=== PATIENT | female | born 1955 | race Caucasian/White ===

== ENCOUNTER 2016-10-08 15:28 | Inpatient (IN) ==
[2016-10-08] MEDS ORDERED: Mag Hydrox/Al Hydrox/Simeth 30 ML UDC PO PRN (22:35)
[2016-10-08] MEDS ORDERED: Naloxone 0.4 MG/ML INJ IVP PRN (22:35)
[2016-10-08] MEDS ORDERED: Ondansetron 4 MG/2 ML VIAL IVP PRN (22:35)
[2016-10-08] MEDS ORDERED: Acetaminophen 325 MG TABLET PO PRN (22:35)
[2016-10-08] MEDS ORDERED: Potassium Chloride 40 MEQ, Lidocaine 1% 2 ML in D5% in Water 500 ML IVPB ONE (22:57)
[2016-10-08] MEDS ORDERED: Metoclopramide 10 MG/2 ML VIAL IVP ONE (22:58)
[2016-10-08] MEDS ORDERED: Pantoprazole 80 MG in 0.9 % Sodium Chloride 50 ML IVPB ONE (22:58)
[2016-10-08 23:33] LABS: Magnesium 1.7 mg/dL (1.6-2.6); Phosphorous 2.2 mg/dL (2.3-4.7)
[2016-10-08] MEDS: *HR* OxyCODONE Immed Rel 5 MG TABLET PO PRN (23:37)
--- NOTE | 2016-10-08 23:38 | Internal Med History&Physical ---
Date of Encounter: 10/08/16 Time of Encounter: 22:30 Assessment and Plan (1) Acute abdominal pain syndrome Status: Acute . (2) SIRS due to infectious process with acute organ dysfunction Status: Acute . (3) Intractable nausea and vomiting Status: Acute . Qualifiers: Vomiting type: cyclical vomiting Qualified Code(s): G43.A1 - Cyclical vomiting, intractable (4) Syncope and collapse Status: Acute . (5) Syncope due to orthostatic hypotension Status: Acute . (6) Acute kidney injury superimposed on CKD Status: Acute . (7) Severe dehydration Status: Acute . (8) Delirium due to conditions classified elsewhere Status: Acute . (9) Toxic metabolic encephalopathy Status: Acute . (10) Duodenitis Status: Acute . (11) Internal hernia Status: Acute . (12) Protein-calorie malnutrition, severe Status: Chronic . (13) Colitis, enteritis, and gastroenteritis of presumed infectious origin Status: Acute . (14) Obesity (BMI 30-39.9) Status: Chronic . (15) Chronic sinusitis, unspecified Status: Chronic . Qualifiers: Sinusitis location: pansinusitis Qualified Code(s): J32.4 - Chronic pansinusitis (16) HTN (hypertension) Status: Chronic . Qualifiers: Hypertension type: essential hypertension Qualified Code(s): I10 - Essential (primary) hypertension (17) HLD (hyperlipidemia) Status: Chronic . Qualifiers: Hyperlipidemia type: mixed hyperlipidemia Qualified Code(s): E78.2 - Mixed hyperlipidemia (18) Dehydration with hyponatremia Status: Acute . (19) Nicotine dependence with nicotine-induced disorder Status: Chronic . Qualifiers: Nicotine product type: cigarettes Qualified Code(s): F17.219 - Nicotine dependence, cigarettes, with unspecified nicotine-induced disorders (20) Hypovolemic shock Status: Acute . (21) Hypokalemia Status: Inactive . Internal Medicine - H&P: HPI Chief complaint: Abdominal pain, nausea/vomiting. Admitted From: Hospital to Hospital Transfer (Transferred from [facility]) Plans for Post Hospital Care: Home History of present illness: Ms. Wilkinson is a 61 year old female with history noteworthy for hypertension, dyslipidemia, hypothyroidism, osteoarthritis, osteopenia, H/o ?Rheumatoid arthrititis, nonobstCAD, diastolic CHF, COPD, depression and anxiety, GERD, morbid obesity, former heavy smoker. The patient was visited and interviewed and examined. Patient is admitted to [facility] as a hospital transfer from [facility] reports of intractable abdominal pain nausea vomiting. Patient first presented to the emergency room stating that she had onset of vomiting earlier in the day. He reported vomiting at least 10 times. Did not suffer any hematemesis melena or bright red blood per rectum nor epistaxis hemoptysis or hematemesis. He reported bilateral lower quadrant abdominal pain that had been present for approximately 4-5 days prior to onset of her nausea and vomiting. Her daughter had found her to be confused during the day and brought her to the emergency room for evaluation. CT of the abdomen and pelvis suggested that thickened appearance of the colon representing colitis. He was admitted to the medical surgical floor at [facility] however patient and family requested transfer to [facility] for ongoing medical care and potential for surgical intervention if needed. Patient's history is noteworthy for a colonoscopy April 2016 harvesting multiple noncancerous polyps. She had also undergone a cholecystectomy in February 2016. Her history also is noteworthy for at least 2 years that she carried a diagnosis of gastroparesis due to chronic nauseation abdominal bloating and discomfort. Findings in the ED: Temperature 97.6 pulse 70 respirations 20-25 blood pressure 88/45 O2 saturation 95% 2 L per nasal cannula. WBC 19.4 hemoglobin 16.7. MCH 82.4. RDW 15. Platelets 281,000. Differential showed an increase in neutrophils. PT 13.1 INR 1.0 PTT 31.6. Metabolic panel noted sodium 133 potassium 2.8 chloride 88. BUN 20 creatinine 1.5. GFR 35. Glucose 188 osmolality 295. Hepatic function normal. Albumin 3.2 total 6.9. Lipase 61. Troponin 0.01. CT head scan showed no acute intracranial abnormality. Mild chronic microvascular ischemic changes. Mucosal thickening right sphenoid sinus and right maxillary sinus EKG normal sinus rhythm nonspecific ST-T wave elevation no acute ischemic changes. CT abdomen and pelvis without contrast demonstrated abrupt caliber change in the distal duodenum of uncertain etiology. Possibly due to adhesions or internal hernia. Recommended. Mild thickened appearance to: Possibly mild colitis. Right lower lobe pulmonary Jaspreet nausea will. Nonspecific thickening of the wall of the urinary bladder. No pathologically enlarged lymph nodes. No fluid or air in the diaphragm. Preliminary impression suggests acute abdominal pain with nausea and vomiting secondary to descending enterocolitis. Systemic inflammatory response syndrome with hypotension consistent with severe sepsis present at admission acute kidney injury stage III on chronic kidney disease present suggestive of modest dehydration. Modest metabolic and electrolyte derangements are associated. The patient presents further risk for acute clinical decline and morbidity given her presenting chief complaint findings and comorbidities. Workup and treatment will progress comprehensively. Cumulative laboratory and radiographic data base was reviewed, considered and discussed. Pertinent ancillary medical records including ECW and PCI documentation was reviewed and considered. Given the patient's presenting concerns, past medical history, clinical findings and symptoms, she is admitted at this time will undergo further evaluation and disposition. Orders were written as per the computerized physician order entry technician system.......................................................................... .................... Consultative opinions will be sought as clinical circumstances justify. Pain management needs will be addressed. Laboratory and radiographic data base will be updated as appropriate. Studies include:cultures blood, amylase, lipase, PT/INR,APTT, cardiac injury panel, BNP , metabolic and hematologic panel, magnesium, phosphorus, ionized calcium, thyroid panel, lipid profile, A1c, C-peptide, CRP, sedimentation rate, respiratory virus panel, blood gas, UA, UDS, lactic acid, serologies, etc. Precautions: Aspiration, fall, delirium protocol/surveillance initiated. Telemetry with continuous hemodynamic monitoring and pulse oximetry initiated. Empiric antibiotic coverage: Intravenous Cipro and Flagyl pending culture data. Special studies: CT abd/pelvis, CT head, chest x-ray, telemetry, EKG. Bowel rest. Clear liquids diet. Advance diet as clinical symptoms permit. Anti-emetics, probiotic, prokinetic therapy initiated. Correction of acid/ base and metabolic/fluid deficits. Pulmonary toilet: Incentive spirometry. Aerosol bronchodilator, mucolytic, antitussivePRN. Supplemental oxygen. Corticosteroid therapyPRN. CPAP/BiPAP supplemental oxygen deliveryPRN. Aerosol Mucomyst therapyPRN. Fluid and electrolyte repletion efforts will proceed. Careful attention to fluid balance and renal recovery will be emphasized. Avoidance of nephrotoxic exposure and adverse drug drug interaction in the setting of impaired renal function will be monitored closely. Acute coronary syndrome protocol/surveillance initiated. DVT and PUD prophylaxis initiated: PPI therapy, intermittent pneumatic cuffs. Subcutaneous heparin. Early ambulation will be encouraged. Immunization updates recommended. Influenza and pneumococcal vaccinations as part of ongoing preventative healthcare recommendations strongly recommended. Smoking cessation counseling briefly addressed. Patient is a former smoker. Advanced care directive discussion briefly addressed. Patient does not declare any healthcare restrictions at this time. Cardiovascular risk appraisal and cardiovascular risk reduction efforts will be emphasized. Physical and occupational therapy may be consulted to evaluate/assess patient's functional capacity and progress mobility as her circumstances justify. Nutrition/dietary education counseling may be considered as circumstances justify. Outpatient medication schedules will be reviewed, confirmed and facilitated as appropriate. Reconciliation of home treatments including adjustments, substitutions and reintroduction into the treatment regimen will address necessary maintenance therapies for chronic pre-existing medical conditions. Plan of care has been reviewed and discussed in detail with the patient. Questions addressed. Hospital course dictated by clinical findings, treatment response and potential consultative interventions. Patient is at risk for further acute clinical decline due to his presenting chief complaints, findings and comorbid conditions. Condition is serious. Prognosis is cautiously optimistic. CODE STATUS is full. Past Med Surg Social Fam HX - Past Medical History Source: old records reviewed Medical history: arthritis, CHF, coronary artery disease, GERD, hyperlipidemia, hypertension, osteoporosis, thyroid disease, other (Dupuytren's contractures. Left plantar fibroma. Right insertional Achilles tendinopathy. Peripheral neuropathy.) Psychiatric history: anxiety, depression - Past Surgical History Surgical History: cholecystectomy, hysterectomy, orthopedic, other, sinus surgery, [place]/BSO, thyroidectomy, other (bladder surgery. Anoscopy. Biopsy of throat (X) benign. Myringotomy tubes right ear.) - Social History Smoking Status: Current every day smoker Packs per day: 1ppd (x45yrs) Smokeless Tobacco Status: No Alcohol use: none Drug use: none Occupational status: retired, disabled Current living situation: With Family Activity Level: Mostly sedentary Recent Out of Country Travel Within the Last 8 Weeks: No Exposure or Possible Exposure to Illness During Travel: No - Family History Mother Adopted: [place]: [place] Family Member Ethnicity: Non- Living Status: Age at : 78 Cause of : OVARIAN CANCER Hx Family Cancer: Yes Internal Medicine - H&P: Meds Albuterol Sulfate [Albuterol Inhaler] 2 puff IH Q4HR PRN 02/13/16 [History] Atorvastatin [Lipitor] 40 mg PO HS 02/13/16 [History] Cholecalciferol (D-3) [Vitamin D] 1,000 unit PO DAILY 02/13/16 [History] Gabapentin [Neurontin] 300 mg PO BID 02/13/16 [History] HYDROcodone/Acet 5/325 mg [[place] 5-325 mg] 1 tab PO TID PRN 02/13/16 [History] Levothyroxine [Synthroid] 112 mcg PO DAILY 02/13/16 [History] Omeprazole [PriLOSEC] 20 mg PO DAILY 02/13/16 [History] Paroxetine [Paxil] 40 mg PO DAILY 02/13/16 [History] Linaclotide [Linzess] 145 mcg PO DAILY PRN 04/03/16 [History] Promethazine [Phenergan] 25 mg PO Q12H PRN 04/03/16 [History] Amitriptyline HCl [Amitriptyline HCl] 100 mg PO HS 10/08/16 [History] Aspirin 81 mg PO DAILY 10/08/16 [History] BuPROPion SR (12 HR) [Wellbutrin SR] 150 mg PO BID 10/08/16 [History] Dicyclomine [Bentyl] 10 mg PO QID 10/08/16 [History] Docusate [Colace] 100 mg PO BID PRN 10/08/16 [History] Furosemide [Lasix] 40 mg PO DAILY 10/08/16 [History] Lisinopril [Lisinopril] 30 mg PO BID 10/08/16 [History] Metoclopramide HCl 5 mg PO QID 10/08/16 [History] Ciprofloxacin HCl [Cipro] 500 mg PO BID #14 tablet 10/12/16 [Rx] MetroNIDAZOLE [Flagyl] 500 mg PO TID #21 tablet 10/12/16 [Rx] Nutritional Supplement [Ensure] 113 gm PO TID #90 container 10/12/16 [Rx] Allergies No Known Allergies Allergy (Unverified 04/05/15 13:52) All Systems PM: A 10-system review of systems was performed and is negative for pertinent findings except as documented above in the HPI. - Constitutional Constitutional: as per HPI, malaise, no chills, no fever(s), no night sweats - EENT Eyes: as per HPI, no change in vision, no discharge, no pain, no photophobia Nose, mouth and throat: as per HPI, no dysphagia, no nasal discharge, no neck pain, no sore throat - Cardiovascular Cardiovascular ROS IM: as per HPI, no chest pain, no diaphoresis, no dyspnea, no lightheadedness, no palpitations, no syncope - Respiratory Respiratory: as per HPI, no cough, no dyspnea, no wheezing, no excessive phlegm production - Gastrointestinal Gastrointestinal: as per HPI, abdominal pain, bloating, change in bowel habits, cramping, diarrhea, nausea, vomiting, no hematemesis, no hematochezia, no melena - Genitourinary Genitourinary: as per HPI, no change in urinary stream, no dysuria, no flank pain, no hematuria Menstruation: as per HPI, post hysterectomy, post menopausal - Musculoskeletal Musculoskeletal ROS IM: as per HPI, no numbness, no tingling - Integumentary Integumentary IM: as per HPI, no rash, no unusual bruising - Neurological Neurological ROS: as per HPI, confusion, weakness, other, no convulsions, no focal weakness, no numbness, no tingling, no tremor(s) - Psychiatric Psychiatric: as per HPI - Endocrine Endocrine IM: as per HPI - Hematologic/Lymphatic Hematologic/Lymphatic: as per HPI, no easy bruising - Allergic/Immunologic Allergic/Immunologic: as per HPI - Constitutional Vitals: Temp Pulse Resp BP Pulse Ox 98.5 F 74 16 103/68 96 10/08/16 22:41 10/08/16 22:41 10/08/16 22:41 10/08/16 22:41 10/08/16 22:41 General appearance: Present: mild distress, A&O X 3, morbidly obese, answers questions appropriately - Head Head exam: Present: atraumatic, normocephalic - Eye Eye exam: Present: EOMI, PERRL, conjuntiva pink, sclera anicteric Pupils: Present: normal accommodation, PERRL - ENT ENT exam: Present: mucous membranes moist, normal external ear exam, normal oropharynx - Neck Neck exam general surgery: Present: full ROM, supple, trachea midline. Absent: lymphadenopathy, tenderness, nuchal rigidity - Respiratory Respiratory exam: Present: decreased breath sounds, CTAB. Absent: accessory muscle use, rales, rhonchi, wheezes - Cardiovascular Cardiovascular exam: Present: distant heart sounds, RRR, +S1, +S2. Absent: diastolic murmur, gallop, rubs, systolic murmur - GI/Abdominal GI/Abdominal exam: Present: distended, hyperactive bowel sounds, soft, tenderness, no peritoneal signs - Extremities Exam Extremities exam: Present: full ROM, warm, radial pulses palpable and symetrical. Absent: calf tenderness, cyanotic, pedal edema - Neurological Exam Neurological exam: Present: alert, altered, CN II-XII intact, oriented X3, no focal deficits. Absent: pronater drift, facial droop, speech deficit - Psychiatric Psychiatric exam: Present: normal affect, normal mood - Skin Skin exam: Present: dry, intact, warm. Absent: petechiae, rash, urticaria, vesicles Internal Med - H&P Results - Labs CBC & Chem 7: 10/12/16 04:07 10/12/16 04:07 - Impressions Vital Signs Temp Pulse Resp BP Pulse Ox 10/08/16 22:41 98.5 F 74 16 103/68 96 Intake and Output 10/08/16 10/08/16 10/08/16 07:59 15:59 23:59 Other: Weight 95.254 kg Patient Weight 10/08/16 23:59 Weight 95.254 kg Abnormal lab results Phosphorus 2.2 mg/dL (2.3-4.7) L 10/08/16 23:12 Allergies Allergy/AdvReac Type Severity Reaction Status Date / Time No Known Allergies Allergy Unverified 04/05/15 13:52 Laboratory Results Phosphorus 2.2 mg/dL (2.3-4.7) L 10/08/16 23:12 Magnesium 1.7 mg/dL (1.6-2.6) 10/08/16 23:12 Abnormal lab results WBC 21.3 K/mcL (4.3-11.1) H 10/09/16 04:36 MCH 27.9 pg (28.0-33.3) L 10/09/16 04:36 RDW 15.2 % (11.5-14.5) H 10/09/16 04:36 Sodium 135 mEq/L (136-145) L 10/09/16 04:36 Glucose 144 mg/dL (70-99) H 10/09/16 04:36 Calcium 7.6 mg/dL (8.6-10.8) L 10/09/16 04:36 Phosphorus 2.2 mg/dL (2.3-4.7) L 10/08/16 23:12 C-Reactive Protein 94 mg/L (Less than 5) H 10/09/16 04:36 Albumin 2.9 g/dL (3.5-5.0) L 10/09/16 04:36 Globulin 3.6 g/dL (2.4-3.5) H 10/09/16 04:36 Albumin/Globulin Ratio 0.8 (1.1-2.2) L 10/09/16 04:36 HDL Cholesterol 34 mg/dL (40-59) L 10/09/16 04:36 Laboratory Results WBC 21.3 K/mcL (4.3-11.1) H 10/09/16 04:36 RBC 4.59 M/mcL (3.82-4.97) 10/09/16 04:36 Hgb 12.8 g/dL (11.5-15.4) D 10/09/16 04:36 Hct 39.4 % (35.3-44.9) 10/09/16 04:36 MCV 85.8 fL (83.0-100.0) 10/09/16 04:36 MCH 27.9 pg (28.0-33.3) L 10/09/16 04:36 MCHC 32.5 g/dL (31.6-35.5) 10/09/16 04:36 RDW 15.2 % (11.5-14.5) H 10/09/16 04:36 Plt Count 199 K/mcL (140-400) 10/09/16 04:36 MPV 11.6 fL (9.4-12.4) 10/09/16 04:36 Sodium 135 mEq/L (136-145) L 10/09/16 04:36 Potassium 3.9 mEq/L (3.5-4.5) D 10/09/16 04:36 Chloride 100 mEq/L (98-109) 10/09/16 04:36 Carbon Dioxide 28 mEq/L (19-29) 10/09/16 04:36 BUN 8 mg/dL (7-20) D 10/09/16 04:36 Creatinine 0.78 mg/dL (0.57-1.11) 10/09/16 04:36 Est GFR ( Amer) > 60 (> 60) 10/09/16 04:36 Est GFR (Non-Af Amer) > 60 (> 60) 10/09/16 04:36 BUN/Creatinine Ratio 10 (6-26) 10/09/16 04:36 Glucose 144 mg/dL (70-99) H 10/09/16 04:36 Calculated Osmolality 281 (280-300) 10/09/16 04:36 Calcium 7.6 mg/dL (8.6-10.8) L 10/09/16 04:36 Phosphorus 2.2 mg/dL (2.3-4.7) L 10/08/16 23:12 Magnesium 1.7 mg/dL (1.6-2.6) 10/08/16 23:12 Total Bilirubin 0.7 mg/dL (0.2-1.2) 10/09/16 04:36 AST 14 Units/L (5-34) 10/09/16 04:36 ALT 9 Units/L (0-55) 10/09/16 04:36 Alkaline Phosphatase 86 Units/L (38-126) 10/09/16 04:36 Troponin I 0.00 ng/mL (0-0.03) 10/09/16 04:36 C-Reactive Protein 94 mg/L (Less than 5) H 10/09/16 04:36 Serum Total Protein 6.5 g/dL (6.0-8.3) 10/09/16 04:36 Albumin 2.9 g/dL (3.5-5.0) L 10/09/16 04:36 Globulin 3.6 g/dL (2.4-3.5) H 10/09/16 04:36 Albumin/Globulin Ratio 0.8 (1.1-2.2) L 10/09/16 04:36 Triglycerides 67 mg/dL (< 150) 10/09/16 04:36 Cholesterol 113 mg/dL (< 200) 10/09/16 04:36 LDL Cholesterol, Calc 66 mg/dL (0-99) 02/07/17 04:36 VLDL Cholesterol, Calc 13 mg/dL (< 31) 10/09/16 04:36 HDL Cholesterol 34 mg/dL (40-59) L 10/09/16 04:36 Cholesterol/HDL Ratio 3.3 (0-4.9) 10/09/16 04:36 Abdomen/Pelvis CT 10/10/16 15:56 IMPRESSION: 1. Findings compatible with acute descending colitis. No diverticula seen. Trace volume of reactive fluid in the left pericolic gutter. 2. Status post cholecystectomy and hysterectomy. D/ / Nehemiah Ho MD / Nehemiah Ho MD Interpreting Provider: Nehemiah Ho MD
[2016-10-09] MEDS: Ringers Solution, Lactated 1,000 ML IVC SCH ×3 (04:24→18:44)
[2016-10-09] MEDS: Pantoprazole 40 MG in 0.9 % Sodium Chloride Mini Bag 100 ML IVC SCH ×4 (04:27→15:52)
[2016-10-09 04:52] LABS: Hematocrit 39.4 % (35.3-44.9); Hemoglobin 12.8 g/dL (11.5-15.4); Mean Corpuscular HGB Conc 32.5 g/dL (31.6-35.5); Mean Corpuscular Hemoglobin 27.9 pg (28.0-33.3); Mean Corpuscular Volume 85.8 fL (83.0-100.0); Mean Platelet Volume 11.6 fL (9.4-12.4); Platelet Count 199 K/mcL (140-400); Red Blood Count 4.59 M/mcL (3.82-4.97); Red Cell Distribution Width 15.2 % (11.5-14.5)
[2016-10-09 05:12] LABS: Alanine Aminotransferase 9 Units/L (0-55); Albumin 2.9 g/dL (3.5-5.0); Albumin/Globulin Ratio 0.8 (1.1-2.2); Alkaline Phosphatase 86 Units/L (38-126); Aspartate Amino Transferase 14 Units/L (5-34); BUN/Creatinine Ratio 10 (6-26); Bilirubin,Total 0.7 mg/dL (0.2-1.2); Blood Urea Nitrogen 8 mg/dL (7-20); C-Reactive Protein 94 mg/L (Less than 5); Calcium 7.6 mg/dL (8.6-10.8); Carbon Dioxide 28 mEq/L (19-29); Chloride 100 mEq/L (98-109); Chol/HDL Ratio 3.3 (0-4.9); Cholesterol 113 mg/dL (< 200); Globulin 3.6 g/dL (2.4-3.5); Glucose 144 mg/dL (70-99); HDL Cholesterol 34 mg/dL (40-59); LDL Cholesterol,Calculated 66 mg/dL (0-99); Osmolality,Calculated 281 (280-300); Potassium 3.9 mEq/L (3.5-4.5); Sodium 135 mEq/L (136-145); Total Protein 6.5 g/dL (6.0-8.3); Triglycerides 67 mg/dL (< 150); eGFR For African Americans > 60 (> 60); eGFR For Non-African Americans > 60 (> 60)
[2016-10-09 05:49] LABS: Bilirubin,Urine Negative (Negative); Blood,Urine Trace (Negative); Clarity,Urine Clear (Clear); Color,Urine Yellow (Yellow); Glucose,Urine (UA) Normal (Normal); Ketones,Urine Negative (Negative); Leukocyte Esterase,Urine Negative (Negative); Nitrite,Urine Negative (Negative); PH,Urine 5.5 pH Units (5.0-8.0); Protein,Urine Negative (Neg-Trace); Specific Gravity,Urine 1.011 (1.010-1.025); Urobilinogen,Urine Normal (Normal)
[2016-10-09] MEDS ORDERED: Sodium Phosphate 30 MMOL in D5% in Water 100 ML IVPB ONE (05:49)
[2016-10-09 05:51] LABS: Bacteria,Urine None Seen per hpf (None-Few); Hyaline Casts,Urine None Seen per lpf (None-Few); RBC,Urine 0-3 per hpf (0-3); Squamous Epithelial Cell,Urine Moderate per lpf (None-Few); WBC,Urine 0-3 per hpf (0-3)
[2016-10-09] MEDS: *HR* OxyCODONE Immed Rel 5 MG TABLET PO PRN ×2 (09:42→15:50)
[2016-10-09] MEDS: Aspirin 81 MG TAB.CHEW PO SCH (11:31)
[2016-10-09] MEDS: Gabapentin 300 MG CAPSULE PO SCH ×2 (11:32→21:04)
[2016-10-09] MEDS: BuPROPion SR (12 HR) 150 MG TABLET PO SCH ×2 (11:32→21:04)
[2016-10-09] MEDS: *HR* HYDROmorphone (PF) 1 MG/ML SYRINGE IVP PRN ×2 (11:44→21:12)
--- NOTE | 2016-10-09 14:26 | General Surgery Consult Note ---
<KonstantinFrank M - Last Filed: 10/09/16 17:08> Date of Encounter: 10/09/16 Medications and Allergies Albuterol Sulfate [Albuterol Inhaler] 2 puff IH Q4HR PRN 02/13/16 [History] Atorvastatin [Lipitor] 40 mg PO HS 02/13/16 [History] Cholecalciferol (D-3) [Vitamin D] 1,000 unit PO DAILY 02/13/16 [History] Gabapentin [Neurontin] 300 mg PO BID 02/13/16 [History] HYDROcodone/Acet 5/325 mg [Beltrami 5-325 mg] 1 tab PO TID PRN 02/13/16 [History] Levothyroxine [Synthroid] 112 mcg PO DAILY 02/13/16 [History] Omeprazole [PriLOSEC] 20 mg PO DAILY 02/13/16 [History] Paroxetine [Paxil] 40 mg PO DAILY 02/13/16 [History] Linaclotide [Linzess] 145 mcg PO DAILY PRN 04/03/16 [History] Promethazine [Phenergan] 25 mg PO Q12H PRN 04/03/16 [History] Amitriptyline HCl [Amitriptyline HCl] 100 mg PO HS 10/08/16 [History] Aspirin 81 mg PO DAILY 10/08/16 [History] BuPROPion SR (12 HR) [Wellbutrin SR] 150 mg PO BID 10/08/16 [History] Dicyclomine [Bentyl] 10 mg PO QID 10/08/16 [History] Docusate [Colace] 100 mg PO BID PRN 10/08/16 [History] Furosemide [Lasix] 40 mg PO DAILY 10/08/16 [History] Lisinopril [Lisinopril] 30 mg PO BID 10/08/16 [History] Metoclopramide HCl 5 mg PO QID 10/08/16 [History] Allergies No Known Allergies Allergy (Unverified 04/05/15 13:52) Review of Systems All systems PM: A 10-system review of systems was performed and is negative for pertinent findings except as documented above in the HPI. General Surgery Exam Initial Vital Signs Temp Pulse Resp BP Pulse Ox 98.5 F 74 16 103/68 96 10/08/16 22:41 10/08/16 22:41 10/08/16 22:41 10/08/16 22:41 10/08/16 22:41 Exam Initial Vital Signs Temp Pulse Resp BP Pulse Ox 98.5 F 74 16 103/68 96 10/08/16 22:41 10/08/16 22:41 10/08/16 22:41 10/08/16 22:41 10/08/16 22:41 Results - Labs 10/09/16 04:36 10/09/16 04:36 Abnormal lab results WBC 21.3 K/mcL (4.3-11.1) H 10/09/16 04:36 MCH 27.9 pg (28.0-33.3) L 10/09/16 04:36 RDW 15.2 % (11.5-14.5) H 10/09/16 04:36 Sodium 135 mEq/L (136-145) L 10/09/16 04:36 Glucose 144 mg/dL (70-99) H 10/09/16 04:36 Calcium 7.6 mg/dL (8.6-10.8) L 10/09/16 04:36 Phosphorus 2.2 mg/dL (2.3-4.7) L 10/08/16 23:12 C-Reactive Protein 94 mg/L (Less than 5) H 10/09/16 04:36 Albumin 2.9 g/dL (3.5-5.0) L 10/09/16 04:36 Globulin 3.6 g/dL (2.4-3.5) H 10/09/16 04:36 Albumin/Globulin Ratio 0.8 (1.1-2.2) L 10/09/16 04:36 HDL Cholesterol 34 mg/dL (40-59) L 10/09/16 04:36 Urine Blood Trace (Negative) H 10/09/16 04:50 Ur Squamous Epith Cells Moderate per lpf (None-Few) H 10/09/16 04:50 Diabetes panel 10/09/16 Range/Units 04:36 Sodium 135 L (136-145) mEq/L Potassium 3.9 D (3.5-4.5) mEq/L Chloride 100 (98-109) mEq/L Carbon Dioxide 28 (19-29) mEq/L BUN 8 D (7-20) mg/dL Creatinine 0.78 (0.57-1.11) mg/dL Glucose 144 H (70-99) mg/dL Calcium 7.6 L (8.6-10.8) mg/dL AST 14 (5-34) Units/L ALT 9 (0-55) Units/L Alkaline Phosphatase 86 (38-126) Units/L Albumin 2.9 L (3.5-5.0) g/dL Triglycerides 67 (< 150) mg/dL HDL Cholesterol 34 L (40-59) mg/dL Calcium panel 10/08/16 10/09/16 Range/Units 23:12 04:36 Calcium 7.6 L (8.6-10.8) mg/dL Phosphorus 2.2 L (2.3-4.7) mg/dL Albumin 2.9 L (3.5-5.0) g/dL Pituitary panel 10/09/16 Range/Units 04:36 Sodium 135 L (136-145) mEq/L Potassium 3.9 D (3.5-4.5) mEq/L Chloride 100 (98-109) mEq/L Carbon Dioxide 28 (19-29) mEq/L BUN 8 D (7-20) mg/dL Creatinine 0.78 (0.57-1.11) mg/dL Glucose 144 H (70-99) mg/dL Calcium 7.6 L (8.6-10.8) mg/dL Adrenal panel 10/09/16 Range/Units 04:36 Sodium 135 L (136-145) mEq/L Potassium 3.9 D (3.5-4.5) mEq/L Chloride 100 (98-109) mEq/L Carbon Dioxide 28 (19-29) mEq/L BUN 8 D (7-20) mg/dL Creatinine 0.78 (0.57-1.11) mg/dL Glucose 144 H (70-99) mg/dL Calcium 7.6 L (8.6-10.8) mg/dL Total Bilirubin 0.7 (0.2-1.2) mg/dL AST 14 (5-34) Units/L ALT 9 (0-55) Units/L Alkaline Phosphatase 86 (38-126) Units/L Albumin 2.9 L (3.5-5.0) g/dL All other labs normal. Consult Discharge Plan - Plan Referrals: Vibha Miller, PAYMENT POSTER [Primary Care Provider] - - Attending Attestation I examined this patient and my medical decision-making was reviewed with the PORTRAIT STUDIO PHOTOGRAPHER/PA/Advanced Practice Nurse/Resident Physician. I agree with the documented findings, disposition and treatment plan as described except to the extent set forth below. I reviewed the physical exam and evaluation. Agree with serial abdominal exam and following the patient's white count. Continue with IV antibiotics and will allow clear liquids. Will follow with you. <Nemesio Braun - Last Filed: 10/09/16 17:20> Date of Encounter: 10/09/16 Time of Encounter: 13:50 Assessment and Plan (1) Colitis Current Visit: Yes Status: Acute Continue antibiotic coverage with cipro and flagyl. IV fluids @ 125cc/hr Currently NPO, will advance to clear liquid diet. Supportive care/ pain control. (2) GI bleed Current Visit: Yes Status: Acute Continued BRBPR today. Hgb on 10/07 at 16.9, today 10/09 Hgb 12.8 Hgb likely will continue to decline with hydration and continued blood per rectum. Will continue to monitor. Qualifiers: GI bleed type/associated pathology: unspecified gastrointestinal hemorrhage type Qualified Code(s): K92.2 - Gastrointestinal hemorrhage, unspecified (3) ARISTIDES (acute kidney injury) Current Visit: Yes Status: Acute Improved Cr 1.52> 0.78 Likely secondary to dehydration, continue IVFs. (4) HTN (hypertension) Current Visit: Yes Status: Chronic Currently normotensive. Management per medicine service. Qualifiers: Hypertension type: essential hypertension Qualified Code(s): I10 - Essential (primary) hypertension (5) HLD (hyperlipidemia) Current Visit: Yes Status: Chronic Qualifiers: Hyperlipidemia type: mixed hyperlipidemia Qualified Code(s): E78.2 - Mixed hyperlipidemia (6) Obesity (BMI 30-39.9) Current Visit: Yes Status: Chronic History of Present Illness Consult date: 10/09/16 Reason for consult: abdominal pain Requesting physician: Marycarmen Merino History of present illness: Ms. Wilkinson is a 61 year old female, transferred from [place], for BRBPR and abdominal pain. Patient states he initially felt weak with frequent non-bloody emesis beginning on 10/04/16, this continued to worsen and patient is unsure of likely syncopal episode while showering on 10/06/16. Patient's daughter is present and states patient called her on Saturday10/07/16, which patient doesn't recall, when daughter arrived with continued vomiting. Brought to [place] ED found to have temp of 96.3F, pulse 78, RR 26, BP 61/5, and O2 sat 92% on 2 lpm. Daughter notes that patient's abdominal pain started Saturday night, patient states the pain is constant/crampy and localized to bilateral lower quadrants, worse in the LLQ. She notes 4 episodes of bright red blood per rectum with clots yesterday and 1 episode today. Notes yellow, bilious emesis. Patient denies any diarrhea, dysuria, fever, or chills. Last colonscopy by Dr. Dorsey on 04/03/16, impression: Twelve 2 to 4 mm polyps in the rectum, descending and ascending colon, removed with cold biopsy forceps. Six to 8mm polyps in the sigmoid, descending, splenic flexure, transverse colon , and at the ileocecal valve; removed with hot snare. Diagnosed with polyposis, referral to genetics with f/u colonscopy in 1 year. PMHx: gastroparesis, arthritis, CHF, CAD, GERD, thyroid disease, anxiety, depression, dypuytren's contractures. Past Med Surg Social Fam HX - Past Medical History Source: patient, obtained from family Medical history: arthritis, CHF, coronary artery disease, GERD, hyperlipidemia, hypertension, osteoporosis, thyroid disease, other (Dupuytren's contractures. Left plantar fibroma. Right insertional Achilles tendinopathy. Peripheral neuropathy.) Psychiatric history: anxiety, depression - Past Surgical History Surgical History: cholecystectomy, hysterectomy, orthopedic, other, sinus surgery, [facility]/BSO, thyroidectomy, other (bladder surgery. Anoscopy. Biopsy of throat (X) benign. Myringotomy tubes right ear.) - Social History Smoking Status: Current every day smoker Packs per day: 1ppd (x45yrs) Smokeless Tobacco Status: No Alcohol use: none Drug use: none - Family History Mother Adopted: [place]: [place] Family Member Ethnicity: Non- Living Status: Age at : 78 Cause of : OVARIAN CANCER Hx Family Cancer: Yes Review of Systems All systems PM: A 10-system review of systems was performed and is negative for pertinent findings except as documented above in the HPI. - Constitutional weight loss (10 lbs in 11 days), no chills, no fever(s) - EENT Nose, mouth and throat: disequilibrium, dizziness, no dysphagia - Cardiovascular no chest pain, no dyspnea - Respiratory no dyspnea - Gastrointestinal abdominal pain, cramping, hematochezia, melena, nausea, vomiting, no hematemesis - Neurological confusion, disequilibrium, dizziness, syncope - Psychiatric anxiety, confusion - Endocrine fatigue, no palpitations General Surgery Exam Initial Vital Signs Temp Pulse Resp BP Pulse Ox 98.5 F 74 16 103/68 96 10/08/16 22:41 10/08/16 22:41 10/08/16 22:41 10/08/16 22:41 10/08/16 22:41 - General physical appearance well developed, well nourished, no distress - Eyes normal ocular movement - ENT atraumatic, normocephalic - Neck trachea midline - Respiratory normal respiratory effort, clear to auscultation - Cardiovascular Cardiovascular exam: Present: RRR - Abdomen Abdomen general surgery: Present: bowel sounds present, soft, tender (tender in RLQ, LLQ, and LUQ. Worst in LLQ.) Abdominal Tenderness: Present: LLQ - Integumentary Integumentary general surgery: Present: warm and dry - Neurologic Present: CN 2-12 grossly intact - Psychiatric Psychiatric general surgery: Present: A&Ox3, speech is normal, memory intact Exam Initial Vital Signs Temp Pulse Resp BP Pulse Ox 98.5 F 74 16 103/68 96 10/08/16 22:41 10/08/16 22:41 10/08/16 22:41 10/08/16 22:41 10/08/16 22:41 Results - Labs 10/09/16 04:36 10/09/16 04:36 Abnormal lab results WBC 21.3 K/mcL (4.3-11.1) H 10/09/16 04:36 MCH 27.9 pg (28.0-33.3) L 10/09/16 04:36 RDW 15.2 % (11.5-14.5) H 10/09/16 04:36 Sodium 135 mEq/L (136-145) L 10/09/16 04:36 Glucose 144 mg/dL (70-99) H 10/09/16 04:36 Calcium 7.6 mg/dL (8.6-10.8) L 10/09/16 04:36 Phosphorus 2.2 mg/dL (2.3-4.7) L 10/08/16 23:12 C-Reactive Protein 94 mg/L (Less than 5) H 10/09/16 04:36 Albumin 2.9 g/dL (3.5-5.0) L 10/09/16 04:36 Globulin 3.6 g/dL (2.4-3.5) H 10/09/16 04:36 Albumin/Globulin Ratio 0.8 (1.1-2.2) L 10/09/16 04:36 HDL Cholesterol 34 mg/dL (40-59) L 10/09/16 04:36 Urine Blood Trace (Negative) H 10/09/16 04:50 Ur Squamous Epith Cells Moderate per lpf (None-Few) H 10/09/16 04:50 Diabetes panel 10/09/16 Range/Units 04:36 Sodium 135 L (136-145) mEq/L Potassium 3.9 D (3.5-4.5) mEq/L Chloride 100 (98-109) mEq/L Carbon Dioxide 28 (19-29) mEq/L BUN 8 D (7-20) mg/dL Creatinine 0.78 (0.57-1.11) mg/dL Glucose 144 H (70-99) mg/dL Calcium 7.6 L (8.6-10.8) mg/dL AST 14 (5-34) Units/L ALT 9 (0-55) Units/L Alkaline Phosphatase 86 (38-126) Units/L Albumin 2.9 L (3.5-5.0) g/dL Triglycerides 67 (< 150) mg/dL HDL Cholesterol 34 L (40-59) mg/dL Calcium panel 10/08/16 10/09/16 Range/Units 23:12 04:36 Calcium 7.6 L (8.6-10.8) mg/dL Phosphorus 2.2 L (2.3-4.7) mg/dL Albumin 2.9 L (3.5-5.0) g/dL Pituitary panel 10/09/16 Range/Units 04:36 Sodium 135 L (136-145) mEq/L Potassium 3.9 D (3.5-4.5) mEq/L Chloride 100 (98-109) mEq/L Carbon Dioxide 28 (19-29) mEq/L BUN 8 D (7-20) mg/dL Creatinine 0.78 (0.57-1.11) mg/dL Glucose 144 H (70-99) mg/dL Calcium 7.6 L (8.6-10.8) mg/dL Adrenal panel 10/09/16 Range/Units 04:36 Sodium 135 L (136-145) mEq/L Potassium 3.9 D (3.5-4.5) mEq/L Chloride 100 (98-109) mEq/L Carbon Dioxide 28 (19-29) mEq/L BUN 8 D (7-20) mg/dL Creatinine 0.78 (0.57-1.11) mg/dL Glucose 144 H (70-99) mg/dL Calcium 7.6 L (8.6-10.8) mg/dL Total Bilirubin 0.7 (0.2-1.2) mg/dL AST 14 (5-34) Units/L ALT 9 (0-55) Units/L Alkaline Phosphatase 86 (38-126) Units/L Albumin 2.9 L (3.5-5.0) g/dL All other labs normal.
[2016-10-09] MEDS: MetroNIDAZOLE 500 MG/100 ML 500 MG/100 ML BAG IVPB SCH (18:05)
[2016-10-09] MEDS ORDERED: 0.9 % Sodium Chloride 1,000 ML ONE (18:27)
[2016-10-09] MEDS: 0.9 % Sodium Chloride 1,000 ML IVC SCH (18:30)
--- NOTE | 2016-10-09 18:51 | Internal Med Progress Note ---
Date of Encounter: 10/09/16 Time of Encounter: 10:00 - Assessment and plan (1) Colitis Current Visit: Yes Status: Acute Assessment and plan: We will continue nothing by mouth, IV fluid, IV antibiotics. (2) Dehydration with hyponatremia Current Visit: Yes Status: Acute Assessment and plan: Will continue IV fluid, follow up chemistry. (3) GI bleed Current Visit: Yes Status: Acute Assessment and plan: We will closely monitor vitals and H and H change. Surgical consult. Qualifiers: GI bleed type/associated pathology: anorectal hemorrhage Qualified Code(s) : K62.5 - Hemorrhage of anus and rectum (4) Intractable nausea and vomiting Current Visit: Yes Status: Acute Assessment and plan: Patient's abdominal CAT scan shows distal duodenum caliber change, possibly internal hernia or adherence. Called the surgical consult. Keep nothing by mouth and IV fluid. Qualifiers: Vomiting type: cyclical vomiting Qualified Code(s): G43.A1 - Cyclical vomiting, intractable (5) DVT prophylaxis Current Visit: Yes Status: Acute Assessment and plan: EPCD - Time Spent With Patient 25 - 35 minutes - Subjective Interval history: Patient is a 61-year-old female admitted for rectal bleeding, abdominal pain, nausea and vomiting. Her past medical history is significant for CHF, CAD, hypertension. Past surgical history include cholecystectomy, hysterectomy. Patient was seen and examined. She still complaining of abdominal pain, with nausea and vomiting. Patient said to me she had no bowel movement for 2 days and without PASSING gas. Still has rectal bleeding with clotting. Surgical consult was called and saw patient. - Constitutional Vitals: Temp Pulse Resp BP Pulse Ox 98.2 F 109 18 105/67 93 L 10/09/16 16:20 10/09/16 16:20 10/09/16 16:20 10/09/16 16:20 10/09/16 16:20 General appearance: Present: mild distress, A&O X 3, morbidly obese, answers questions appropriately - Head Head exam: Present: atraumatic, normocephalic - Eye Eye exam: Present: PERRL, conjuntiva pink, sclera anicteric Pupils: Present: PERRL - Neck Neck exam general surgery: Present: supple, trachea midline. Absent: lymphadenopathy - Respiratory Respiratory exam: Present: CTAB. Absent: accessory muscle use, rales, rhonchi, wheezes - Cardiovascular Cardiovascular exam: Present: RRR, +S1, +S2. Absent: diastolic murmur, gallop, rubs, systolic murmur - GI/Abdominal GI/Abdominal exam: Present: normal bowel sounds, soft, tenderness, no peritoneal signs. Absent: distended - Extremities Exam Extremities exam: Present: warm, radial pulses palpable and symetrical. Absent : calf tenderness, cyanotic, pedal edema - Neurological Exam Neurological exam: Present: CN II-XII intact, oriented X3, no focal deficits. Absent: pronater drift, facial droop, speech deficit - Skin Skin exam: Present: dry, intact Internal Medicine: Result - Labs CBC & Chem 7: 10/09/16 04:36 10/09/16 04:36 Labs: Short CBC 10/09/16 Range/Units 04:36 WBC 21.3 H (4.3-11.1) K/mcL Hgb 12.8 D (11.5-15.4) g/dL Hct 39.4 (35.3-44.9) % Plt Count 199 (140-400) K/mcL BMP 10/09/16 04:36 Sodium 135 L Potassium 3.9 D Chloride 100 Carbon Dioxide 28 BUN 8 D Creatinine 0.78 Glucose 144 H Calcium 7.6 L Cardiac Enzymes 10/08/16 10/09/16 10/09/16 Range/Units 23:12 04:36 10:30 Troponin I 0.00 0.00 0.00 (0-0.03) ng/mL Liver Function 10/09/16 Range/Units 04:36 Total Bilirubin 0.7 (0.2-1.2) mg/dL AST 14 (5-34) Units/L ALT 9 (0-55) Units/L Alkaline Phosphatase 86 (38-126) Units/L Albumin 2.9 L (3.5-5.0) g/dL Urine 10/09/16 Range/Units 04:50 Urine Color Yellow (Yellow) Urine Clarity Clear (Clear) Urine pH 5.5 (5.0-8.0) pH Units Ur Specific Lyle 1.011 (1.010-1.025) Urine Protein Negative (Neg-Trace) mg/dL Urine Glucose (UA) Normal (Normal) mg/dL Consult Discharge Plan - Plan Referrals: Vibha Miller CNP [Primary Care Provider] -
[2016-10-09] MEDS ORDERED: 0.9 % Sodium Chloride 1,000 ML IVC SCH (19:00)
[2016-10-09] MEDS ORDERED: Polyethylene Glycol 3350 255 GM POWDER PO ONE (20:21)
[2016-10-09] MEDS ORDERED: 0.9 % Sodium Chloride 500 ML IVC ONE (20:24)
[2016-10-09 20:26] LABS: Hematocrit 36.9 % (35.3-44.9)
[2016-10-10] MEDS: MetroNIDAZOLE 500 MG/100 ML 500 MG/100 ML BAG IVPB SCH ×4 (01:20→23:41)
[2016-10-10 04:57] LABS: BUN/Creatinine Ratio 8 (6-26); Calcium 7.4 mg/dL (8.6-10.8); Carbon Dioxide 28 mEq/L (19-29); Chloride 96 mEq/L (98-109); Glucose 112 mg/dL (70-99); Osmolality,Calculated 274 (280-300); Potassium 3.5 mEq/L (3.5-4.5); Sodium 133 mEq/L (136-145); eGFR For African Americans > 60 (> 60); eGFR For Non-African Americans > 60 (> 60)
[2016-10-10 05:01] LABS: Basophils % 0.2 %; Eosinophils # 0.1 K/mcL (0.0-0.6); Eosinophils % 0.5 %; Hematocrit 36.2 % (35.3-44.9); Hemoglobin 11.5 g/dL (11.5-15.4); Immature Granulocytes % 0.7 % (0-4); Lymphocytes # 2.1 K/mcL (0.6-4.6); Mean Corpuscular HGB Conc 31.8 g/dL (31.6-35.5); Mean Corpuscular Hemoglobin 27.4 pg (28.0-33.3); Mean Corpuscular Volume 86.2 fL (83.0-100.0); Mean Platelet Volume 11.4 fL (9.4-12.4); Monocytes # 1.6 K/mcL (0.0-1.3); Monocytes % 8.4 %; Neutrophils # 15.3 K/mcL (1.6-8.9); Platelet Count 192 K/mcL (140-400); Red Cell Distribution Width 15.3 % (11.5-14.5); Segmented Neutrophils % 79.2 %
[2016-10-10 05:03] LABS: Blood Urea Nitrogen 5 mg/dL (7-20)
[2016-10-10] MEDS: *HR* HYDROmorphone (PF) 1 MG/ML SYRINGE IVP PRN ×2 (06:15→23:47)
--- NOTE | 2016-10-10 07:18 | General Surgery Progress Note ---
Date of Encounter: 10/10/16 Time of Encounter: 07:14 - Assessment and Plan (1) Colitis Current Visit: Yes Status: Acute Noted mild decrease in Hgb. Continued abdominal pain. Symptoms most likely secondary to colitis. Discussed with the patient and will tentatively plan for a colonoscopy to verify that the patient's symptoms correlate with colitis. Continue with IV abx. The patient agrees to the above plan. Subjective Patient reports: still having pain (States she feels the same. Positive multiple BMs with blood. No solids) Objective Vital Signs - Last 8 Hours Temp Pulse Resp BP Pulse Ox 10/10/16 04:31 97.4 F L 76 20 102/70 93 L 10/09/16 23:33 97.8 F 85 20 100/64 95 Intake and Output 10/09/16 10/09/16 10/10/16 15:59 23:59 07:59 Intake Total 1210 / 1210 1600 / 1600 100 / 100 Output Total 750 / 750 Balance 460 / 460 1600 / 1600 100 / 100 Intake: IV Fluids 1210 / 1210 1600 / 1600 100 / 100 0.9 % Sodium Chloride 500 500 / 500 ML @ 1875 mls/hr IVC . Q16M ONE Rx#:[id number] Protonix 40 MG In 0.9 % 200 / 200 Sodium Chloride (Mini-Bag +) 100 ML @ 20 mls/hr IVC .Q5H [facility] Rx#: [id number] Lactated Ringers 1,000 ML 900 / 900 800 / 800 @ 125 mls/hr IVC .Q8H [facility] Rx#:[id number] Cipro 400 MG/200 ML 400 200 / 200 mg In 200 ml @ 200 mls/hr IVPB Q12HR [facility] Rx#: [id number] Flagyl 500 MG/100 ML 500 100 / 100 100 / 100 mg In 100 ml @ 100 mls/hr IVPB Q8HR [facility] Rx#: [id number] Sodium Phosphate 30 MMOL 110 / 110 In Dextrose 5% 100 ML @ 16 mls/hr IVPB ONCE ONE Rx#:[id number] Output: Urine 750 / 750 Other: Meal NPO Stool Size Moderate Stool Consistency liquid # Bowel Movements 1 # Bowel Movement Diapers 1 Weight 102.512 kg Patient Weight 10/10/16 23:59 Weight 102.512 kg - General physical appearance other (mild to moderate distress) - Abdomen Abdomen: Present: bowel sounds present, soft, tender (lower abdominal pain to palpation) - Labs 10/10/16 04:15 10/10/16 04:15 Diabetes panel 10/10/16 Range/Units 04:15 Sodium 133 L (136-145) mEq/L Potassium 3.5 (3.5-4.5) mEq/L Chloride 96 L (98-109) mEq/L Carbon Dioxide 28 (19-29) mEq/L BUN 5 L (7-20) mg/dL Creatinine 0.66 (0.57-1.11) mg/dL Glucose 112 H (70-99) mg/dL Calcium 7.4 L (8.6-10.8) mg/dL Calcium panel 10/10/16 Range/Units 04:15 Calcium 7.4 L (8.6-10.8) mg/dL Pituitary panel 10/10/16 Range/Units 04:15 Sodium 133 L (136-145) mEq/L Potassium 3.5 (3.5-4.5) mEq/L Chloride 96 L (98-109) mEq/L Carbon Dioxide 28 (19-29) mEq/L BUN 5 L (7-20) mg/dL Creatinine 0.66 (0.57-1.11) mg/dL Glucose 112 H (70-99) mg/dL Calcium 7.4 L (8.6-10.8) mg/dL Adrenal panel 10/10/16 Range/Units 04:15 Sodium 133 L (136-145) mEq/L Potassium 3.5 (3.5-4.5) mEq/L Chloride 96 L (98-109) mEq/L Carbon Dioxide 28 (19-29) mEq/L BUN 5 L (7-20) mg/dL Creatinine 0.66 (0.57-1.11) mg/dL Glucose 112 H (70-99) mg/dL Calcium 7.4 L (8.6-10.8) mg/dL - VTE Documentation of Mechanical Device: Intermittent pneumatic compression device Consult Discharge Plan - Plan Referrals: Vibha Miller, CUSTOMER SERVICE OFFICER [Primary Care Provider] -
[2016-10-10] MEDS: Gabapentin 300 MG CAPSULE PO SCH ×2 (09:25→19:57)
[2016-10-10] MEDS: Aspirin 81 MG TAB.CHEW PO SCH (09:25)
[2016-10-10] MEDS: BuPROPion SR (12 HR) 150 MG TABLET PO SCH ×2 (09:25→19:57)
[2016-10-10] MEDS: 0.9 % Sodium Chloride 1,000 ML IVC SCH ×2 (09:31→18:06)
[2016-10-10] MEDS ORDERED: *HR* Midazolam HCl 5 MG/5 ML VIAL IVP ONE (11:46)
[2016-10-10] MEDS ORDERED: *HR* FentaNYL (PF) 100 MCG/2 ML VIAL ONE (11:46)
[2016-10-10] MEDS ORDERED: *HR* Promethazine 25 MG/ML VIAL IVP ONE (12:08)
[2016-10-10] MEDS ORDERED: Simethicone 40 MG/0.6 ML MLS IR ONE (12:08)
[2016-10-10] MEDS: *HR* Midazolam HCl 5 MG/5 ML VIAL IVP PRN ×2 (12:16→12:21)
[2016-10-10] MEDS: *HR* FentaNYL (PF) 100 MCG/2 ML VIAL IVP PRN ×2 (12:16→12:22)
--- NOTE | 2016-10-10 12:35 | Pre-Sedation Evaluation ---
Pre-sedation evaluation - Pre-sedation checklist Date of procedure: 10/10/16 Procedure: colonoscopy Recent Vitals: Last Vital Signs Temp 98.1 F 10/10/16 12:09 Pulse 78 10/10/16 12:30 Resp 18 10/10/16 12:30 BP 85/67 10/10/16 12:30 Pulse Ox 97 10/10/16 12:30 H&P (including ROS) documented in medical record: Yes Previous reaction to sedatives/anesthetics: No Dietary Status: NPO after Midnight Airway Assessment: Patient can open mouth completely, TMJ function normal Dentition: dentures removed Possible difficult airway: No ASA Classification *see protocol: CLASS III-Severe systemic disease Plan of Care: Pt appropriate candidate for procedure/moderate/conscious sedation
--- NOTE | 2016-10-10 12:36 | Event Note ---
Date of Encounter: 10/10/16 Time of Encounter: 12:35 Colonoscopy performed to the level of the transverse colon. Evidence of severe colitis noted at the proximal and mid descending colon, likely ischemic in nature. Biopsies performed. Recommend clear liquids, serial H/H and continue with current conservative management.
--- NOTE | 2016-10-10 17:01 | Urology - Consult Note ---
Date of Encounter: 10/10/16 Time of Encounter: 16:58 - Assessment and Plan (1) Incomplete bladder emptying Current Visit: Yes Status: Acute Assessment and plan: The large postvoid residual with minimal discomfort suggests that this may be a chronic process. I suspect that her incontinence and frequency were due to incomplete emptying and overflow incontinence. They may actually be related to her history of urethral sling 20 years ago. No acute urologic intervention required while the patient is in the hospital. Continue indwelling Frank catheter. She needs follow-up in the urology office within 1-2 weeks of discharge for a voiding trial. If she fails the voiding trial, which is possible if she has a neurogenic bladder, will consider teaching self intermittent catheterization. We also discussed more aggressive surgical options such as urethral lysis and InterStim. Urology CN:SARAH Consult date: 10/10/16 Reason for consult Urology: Other History of present illness: 61 yo admitted for abd pain and colitis. found to have significant incomplete emptying and 1950 cc residual. cath in place now. Long-standing problems with urgency, frequency, incontinence. She underwent 2 pelvic surgeries approximately 20 years ago. The last was at [facility] which was a hysterectomy in mid urethral sling. She did not seek recent care for her frequency and incontinence because "she did not think anything else could be done ". No UTIs Past Med Surg Social Fam HX - Past Medical History Medical history: arthritis, CHF, coronary artery disease, GERD, hyperlipidemia, hypertension, osteoporosis, thyroid disease, other Psychiatric history: anxiety, depression - Past Surgical History Surgical History: cholecystectomy, hysterectomy, orthopedic, other, sinus surgery, [place]/BSO, thyroidectomy, other - Social History Smoking Status: Current every day smoker Packs per day: 1ppd (x45yrs) Smokeless Tobacco Status: No Alcohol use: none Drug use: none - Family History Mother Adopted: [place]: BATSHEVA Family Member Ethnicity: Non- Living Status: Age at : 78 Cause of : OVARIAN CANCER Hx Family Cancer: Yes Medications and Allergies Albuterol Sulfate [Albuterol Inhaler] 2 puff IH Q4HR PRN 02/13/16 [History] Atorvastatin [Lipitor] 40 mg PO HS 02/13/16 [History] Cholecalciferol (D-3) [Vitamin D] 1,000 unit PO DAILY 02/13/16 [History] Gabapentin [Neurontin] 300 mg PO BID 02/13/16 [History] HYDROcodone/Acet 5/325 mg [[place] 5-325 mg] 1 tab PO TID PRN 02/13/16 [History] Levothyroxine [Synthroid] 112 mcg PO DAILY 02/13/16 [History] Omeprazole [PriLOSEC] 20 mg PO DAILY 02/13/16 [History] Paroxetine [Paxil] 40 mg PO DAILY 02/13/16 [History] Linaclotide [Linzess] 145 mcg PO DAILY PRN 04/03/16 [History] Promethazine [Phenergan] 25 mg PO Q12H PRN 04/03/16 [History] Amitriptyline HCl [Amitriptyline HCl] 100 mg PO HS 10/08/16 [History] Aspirin 81 mg PO DAILY 10/08/16 [History] BuPROPion SR (12 HR) [Wellbutrin SR] 150 mg PO BID 10/08/16 [History] Dicyclomine [Bentyl] 10 mg PO QID 10/08/16 [History] Docusate [Colace] 100 mg PO BID PRN 10/08/16 [History] Furosemide [Lasix] 40 mg PO DAILY 10/08/16 [History] Lisinopril [Lisinopril] 30 mg PO BID 10/08/16 [History] Metoclopramide HCl 5 mg PO QID 10/08/16 [History] Allergies No Known Allergies Allergy (Unverified 04/05/15 13:52) Review of Systems - Constitutional fatigue, no chills, no malaise - EENT Nose, mouth and throat: no dizziness - Cardiovascular no chest pain - Respiratory no cough - Gastrointestinal abdominal pain - Genitourinary Genitourinary: urinary incontinence - Musculoskeletal back pain - Integumentary no erythema - Neurological no confusion - Psychiatric no anxiety - Hematologic/Lymphatic easy bleeding - Allergic/Immunologic no throat swelling Exam Initial Vital Signs Temp Pulse Resp BP Pulse Ox 98.5 F 74 16 103/68 96 10/08/16 22:41 10/08/16 22:41 10/08/16 22:41 10/08/16 22:41 10/08/16 22:41 - General physical appearance Present: well developed, no distress - Eyes Present: PERRL - ENT Present: normal nares - Neck Present: no masses - Respiratory Present: normal respiratory effort - Cardiovascular Cardiovascular exam IM: RRR - Abdomen Abdomen: Present: soft - Integumentary Present: no rash - Neurologic Present: normal coordination - Musculoskeletal Present: other - Additional Findings Frank catheter with clear urine Urology Results - Labs 10/10/16 04:15 10/10/16 04:15 Abnormal lab results WBC 19.3 K/mcL (4.3-11.1) H 10/10/16 04:15 MCH 27.4 pg (28.0-33.3) L 10/10/16 04:15 RDW 15.3 % (11.5-14.5) H 10/10/16 04:15 Neutrophils # 15.3 K/mcL (1.6-8.9) H 10/10/16 04:15 Monocytes # 1.6 K/mcL (0.0-1.3) H 10/10/16 04:15 Sodium 133 mEq/L (136-145) L 10/10/16 04:15 Chloride 96 mEq/L (98-109) L 10/10/16 04:15 BUN 5 mg/dL (7-20) L 10/10/16 04:15 Glucose 112 mg/dL (70-99) H 10/10/16 04:15 Calculated Osmolality 274 (280-300) L 10/10/16 04:15 Calcium 7.4 mg/dL (8.6-10.8) L 10/10/16 04:15 Phosphorus 2.2 mg/dL (2.3-4.7) L 10/08/16 23:12 C-Reactive Protein 94 mg/L (Less than 5) H 10/09/16 04:36 Albumin 2.9 g/dL (3.5-5.0) L 10/09/16 04:36 Globulin 3.6 g/dL (2.4-3.5) H 10/09/16 04:36 Albumin/Globulin Ratio 0.8 (1.1-2.2) L 10/09/16 04:36 HDL Cholesterol 34 mg/dL (40-59) L 10/09/16 04:36 Urine Blood Trace (Negative) H 10/09/16 04:50 Ur Squamous Epith Cells Moderate per lpf (None-Few) H 10/09/16 04:50 Diabetes panel 02/08/17 Range/Units 04:15 Sodium 133 L (136-145) mEq/L Potassium 3.5 (3.5-4.5) mEq/L Chloride 96 L (98-109) mEq/L Carbon Dioxide 28 (19-29) mEq/L BUN 5 L (7-20) mg/dL Creatinine 0.66 (0.57-1.11) mg/dL Glucose 112 H (70-99) mg/dL Calcium 7.4 L (8.6-10.8) mg/dL Calcium panel 10/10/16 Range/Units 04:15 Calcium 7.4 L (8.6-10.8) mg/dL Pituitary panel 10/10/16 Range/Units 04:15 Sodium 133 L (136-145) mEq/L Potassium 3.5 (3.5-4.5) mEq/L Chloride 96 L (98-109) mEq/L Carbon Dioxide 28 (19-29) mEq/L BUN 5 L (7-20) mg/dL Creatinine 0.66 (0.57-1.11) mg/dL Glucose 112 H (70-99) mg/dL Calcium 7.4 L (8.6-10.8) mg/dL Adrenal panel 10/10/16 Range/Units 04:15 Sodium 133 L (136-145) mEq/L Potassium 3.5 (3.5-4.5) mEq/L Chloride 96 L (98-109) mEq/L Carbon Dioxide 28 (19-29) mEq/L BUN 5 L (7-20) mg/dL Creatinine 0.66 (0.57-1.11) mg/dL Glucose 112 H (70-99) mg/dL Calcium 7.4 L (8.6-10.8) mg/dL All other labs normal. Consult Discharge Plan - Plan Referrals: Vibha Miller CNP [Primary Care Provider] - 10/18/16 2:00 pm
[2016-10-10] MEDS: *HR* OxyCODONE Immed Rel 5 MG TABLET PO PRN (17:07)
--- NOTE | 2016-10-10 17:28 | Internal Med Progress Note ---
Date of Encounter: 10/10/16 Time of Encounter: 16:00 - Assessment and plan (1) Colitis Current Visit: Yes Status: Acute Assessment and plan: We will continue IV antibiotics, advance diet gradually. (2) Dehydration with hyponatremia Current Visit: Yes Status: Acute Assessment and plan: IVF discontinued as pt started diet. (3) GI bleed Current Visit: Yes Status: Acute Assessment and plan: We will closely monitor vitals and H and H change. Colonoscope shows colitis, will cont abx. Qualifiers: GI bleed type/associated pathology: anorectal hemorrhage Qualified Code(s) : K62.5 - Hemorrhage of anus and rectum (4) Intractable nausea and vomiting Current Visit: Yes Status: Acute Assessment and plan: Pt has no further n/v. Repeat Abd CT shows colitis. Qualifiers: Vomiting type: cyclical vomiting Qualified Code(s): G43.A1 - Cyclical vomiting, intractable (5) DVT prophylaxis Current Visit: Yes Status: Acute Assessment and plan: EPCD (6) Urinary retention Current Visit: Yes Status: Acute Assessment and plan: Frank catheter has been placed. Urology saw patient and the plan for voiding trial as outpatient - Time Spent With Patient 25 - 35 minutes - Subjective Interval history: Patient is a 61-year-old female admitted for rectal bleeding, abdominal pain, nausea and vomiting. Her past medical history is significant for CHF, CAD, hypertension. Past surgical history include cholecystectomy, hysterectomy. Patient was seen and examined. She still complaining of abdominal pain, without nausea or vomiting. pt had BM today and did colonoscope. Colonoscope shows colitis, possibly ischemic colitis. Pt has urinary retention with over 1000ml residual. Frank catheter placed and urology consult called. Repeated Abd CT also shows colitis. Will cotinue cipro and flagyl. Advance diet as tolerated. Closely monitor bleeding, vitals, and H/H changes. - Constitutional Vitals: Temp Pulse Resp BP Pulse Ox 97.7 F 66 17 111/74 97 10/10/16 15:51 10/10/16 15:51 10/10/16 15:51 10/10/16 17:04 10/10/16 15:51 General appearance: Present: mild distress, A&O X 3, morbidly obese, answers questions appropriately - Head Head exam: Present: atraumatic, normocephalic - Eye Eye exam: Present: PERRL, conjuntiva pink, sclera anicteric Pupils: Present: PERRL - Neck Neck exam general surgery: Present: supple, trachea midline. Absent: lymphadenopathy - Respiratory Respiratory exam: Present: CTAB. Absent: accessory muscle use, rales, rhonchi, wheezes - Cardiovascular Cardiovascular exam: Present: RRR, +S1, +S2. Absent: diastolic murmur, gallop, rubs, systolic murmur - GI/Abdominal GI/Abdominal exam: Present: normal bowel sounds, soft, tenderness (Tenderness on lower abdomen without rebound or guarding), no peritoneal signs. Absent: distended - Extremities Exam Extremities exam: Present: warm, radial pulses palpable and symetrical. Absent : calf tenderness, cyanotic, pedal edema - Neurological Exam Neurological exam: Present: CN II-XII intact, oriented X3, no focal deficits. Absent: pronater drift, facial droop, speech deficit - Skin Skin exam: Present: dry, intact Internal Medicine: Result - Labs CBC & Chem 7: 10/10/16 04:15 10/10/16 04:15 Labs: Short CBC 10/09/16 10/10/16 Range/Units 20:20 04:15 WBC 19.3 H (4.3-11.1) K/mcL Hgb 12.0 11.5 (11.5-15.4) g/dL Hct 36.9 36.2 (35.3-44.9) % Plt Count 192 (140-400) K/mcL Neutrophils # 15.3 H (1.6-8.9) K/mcL BMP 10/10/16 04:15 Sodium 133 L Potassium 3.5 Chloride 96 L Carbon Dioxide 28 BUN 5 L Creatinine 0.66 Glucose 112 H Calcium 7.4 L - Impressions Impressions Abdomen/Pelvis CT 10/10/16 15:56 IMPRESSION: 1. Findings compatible with acute descending colitis. No diverticula seen. Trace volume of reactive fluid in the left pericolic gutter. 2. Status post cholecystectomy and hysterectomy. D/ / Nehemiah Ho MD / Nehemiah Ho MD Interpreting Provider: Nehemiah Ho MD - VTE Documentation of Mechanical Device: Intermittent pneumatic compression device Consult Discharge Plan - Plan Referrals: Vibha Miller CNP [Primary Care Provider] - 10/18/16 2:00 pm
[2016-10-10 17:30] LABS: Basophils # 0.1 K/mcL (0.0-0.2); Basophils % 0.3 %; Eosinophils # 0.1 K/mcL (0.0-0.6); Eosinophils % 0.7 %; Hematocrit 34.8 % (35.3-44.9); Hemoglobin 11.3 g/dL (11.5-15.4); Immature Granulocytes % 0.4 % (0-4); Immature Platelets 7.7 % (1.1-6.1); Lymphocytes # 1.8 K/mcL (0.6-4.6); Lymphocytes % 11.5 %; Mean Corpuscular HGB Conc 32.5 g/dL (31.6-35.5); Mean Corpuscular Volume 86.1 fL (83.0-100.0); Mean Platelet Volume 11.2 fL (9.4-12.4); Monocytes # 1.3 K/mcL (0.0-1.3); Monocytes % 8.1 %; Neutrophils # 12.3 K/mcL (1.6-8.9); Platelet Count 178 K/mcL (140-400); Red Blood Count 4.04 M/mcL (3.82-4.97); Red Cell Distribution Width 14.9 % (11.5-14.5)
[2016-10-10 17:44] LABS: Alanine Aminotransferase 10 Units/L (0-55); Albumin 2.6 g/dL (3.5-5.0); Albumin/Globulin Ratio 0.8 (1.1-2.2); Alkaline Phosphatase 78 Units/L (38-126); Aspartate Amino Transferase 18 Units/L (5-34); BUN/Creatinine Ratio 5 (6-26); Bilirubin,Total 0.1 mg/dL (0.2-1.2); Calcium 7.5 mg/dL (8.6-10.8); Carbon Dioxide 28 mEq/L (19-29); Chloride 101 mEq/L (98-109); Globulin 3.4 g/dL (2.4-3.5); Glucose 87 mg/dL (70-99); Osmolality,Calculated 280 (280-300); Potassium 3.2 mEq/L (3.5-4.5); Sodium 137 mEq/L (136-145); eGFR For African Americans > 60 (> 60); eGFR For Non-African Americans > 60 (> 60)
[2016-10-10 17:45] LABS: Blood Urea Nitrogen 3 mg/dL (7-20)
[2016-10-10] MEDS ORDERED: Potassium Chloride Elixir 20 MEQ/15 ML UDC PO ONE (19:14)
[2016-10-11 04:15] LABS: Basophils # 0.1 K/mcL (0.0-0.2); Basophils % 0.4 %; Eosinophils # 0.2 K/mcL (0.0-0.6); Eosinophils % 1.2 %; Hematocrit 36.1 % (35.3-44.9); Hemoglobin 11.5 g/dL (11.5-15.4); Immature Granulocytes % 0.6 % (0-4); Lymphocytes # 1.6 K/mcL (0.6-4.6); Lymphocytes % 13.5 %; Mean Corpuscular HGB Conc 31.9 g/dL (31.6-35.5); Mean Corpuscular Hemoglobin 27.7 pg (28.0-33.3); Mean Platelet Volume 10.5 fL (9.4-12.4); Monocytes # 0.8 K/mcL (0.0-1.3); Monocytes % 6.8 %; Neutrophils # 9.3 K/mcL (1.6-8.9); Platelet Count 181 K/mcL (140-400); Red Blood Count 4.15 M/mcL (3.82-4.97); Red Cell Distribution Width 14.9 % (11.5-14.5); Segmented Neutrophils % 77.5 %
[2016-10-11 04:44] LABS: BUN/Creatinine Ratio 5 (6-26); Blood Urea Nitrogen 3 mg/dL (7-20); Calcium 7.5 mg/dL (8.6-10.8); Carbon Dioxide 29 mEq/L (19-29); Chloride 101 mEq/L (98-109); Glucose 94 mg/dL (70-99); Osmolality,Calculated 280 (280-300); Potassium 3.7 mEq/L (3.5-4.5); Sodium 137 mEq/L (136-145); eGFR For African Americans > 60 (> 60); eGFR For Non-African Americans > 60 (> 60)
[2016-10-11] MEDS: MetroNIDAZOLE 500 MG/100 ML 500 MG/100 ML BAG IVPB SCH ×3 (09:00→23:48)
[2016-10-11] MEDS: Gabapentin 300 MG CAPSULE PO SCH ×2 (09:01→19:52)
[2016-10-11] MEDS: BuPROPion SR (12 HR) 150 MG TABLET PO SCH ×2 (09:01→19:52)
[2016-10-11] MEDS: Aspirin 81 MG TAB.CHEW PO SCH (09:01)
[2016-10-11] MEDS: *HR* OxyCODONE Immed Rel 5 MG TABLET PO PRN ×2 (12:46→19:59)
[2016-10-11] MEDS: *HR* HYDROmorphone (PF) 1 MG/ML SYRINGE IVP PRN ×2 (15:24→23:48)
--- NOTE | 2016-10-11 15:27 | Internal Med Progress Note ---
Date of Encounter: 10/11/16 Time of Encounter: 10:00 - Assessment and plan (1) Colitis Current Visit: Yes Status: Acute Assessment and plan: We will continue IV antibiotics, advance diet gradually. Possibly ischemic colitis, will continue aspirin and statin treatment. (2) Dehydration with hyponatremia Current Visit: Yes Status: Acute Assessment and plan: IVF discontinued as pt started diet. No signs of dehydration (3) GI bleed Current Visit: Yes Status: Acute Assessment and plan: We will closely monitor vitals and H and H change. Colonoscope shows colitis, will cont abx. No further bloody stool Qualifiers: GI bleed type/associated pathology: anorectal hemorrhage Qualified Code(s) : K62.5 - Hemorrhage of anus and rectum (4) Intractable nausea and vomiting Current Visit: Yes Status: Acute Assessment and plan: Pt has no further n/v. Repeat Abd CT shows colitis. Qualifiers: Vomiting type: cyclical vomiting Qualified Code(s): G43.A1 - Cyclical vomiting, intractable (5) DVT prophylaxis Current Visit: Yes Status: Acute Assessment and plan: EPCD (6) Urinary retention Current Visit: Yes Status: Acute Assessment and plan: Frank catheter has been placed. Urology saw patient and the plan for voiding trial as outpatient - Time Spent With Patient 25 - 35 minutes - Subjective Interval history: Patient is a 61-year-old female admitted for rectal bleeding, abdominal pain, nausea and vomiting. Her past medical history is significant for CHF, CAD, hypertension. Past surgical history include cholecystectomy, hysterectomy. Patient was seen and examined. Her abdominal pain has improved, only mild tenderness on palpitation. No nausea or vomiting. No further bloody stool. H& H is stable. WBC is getting down. Will advance diet as tolerated, continue antibiotic. - Constitutional Vitals: Temp Pulse Resp BP Pulse Ox 98.1 F 67 18 129/84 95 10/11/16 11:48 10/11/16 11:48 10/11/16 11:48 10/11/16 11:48 10/11/16 11:48 General appearance: Present: mild distress, A&O X 3, morbidly obese, answers questions appropriately - Head Head exam: Present: atraumatic, normocephalic - Eye Eye exam: Present: PERRL, conjuntiva pink, sclera anicteric Pupils: Present: PERRL - Neck Neck exam general surgery: Present: supple, trachea midline. Absent: lymphadenopathy - Respiratory Respiratory exam: Present: CTAB. Absent: accessory muscle use, rales, rhonchi, wheezes - Cardiovascular Cardiovascular exam: Present: RRR, +S1, +S2. Absent: diastolic murmur, gallop, rubs, systolic murmur - GI/Abdominal GI/Abdominal exam: Present: normal bowel sounds, soft, tenderness (Mild tenderness on deep palpation on lower abdomen), no peritoneal signs. Absent: distended - Extremities Exam Extremities exam: Present: warm, radial pulses palpable and symetrical. Absent : calf tenderness, cyanotic, pedal edema - Neurological Exam Neurological exam: Present: CN II-XII intact, oriented X3, no focal deficits. Absent: pronater drift, facial droop, speech deficit - Skin Skin exam: Present: dry, intact Internal Medicine: Result - Labs CBC & Chem 7: 10/11/16 03:58 10/11/16 03:58 Labs: Short CBC 10/10/16 10/11/16 Range/Units 17:16 03:58 WBC 15.6 H 12.1 H (4.3-11.1) K/mcL Hgb 11.3 L 11.5 (11.5-15.4) g/dL Hct 34.8 L 36.1 (35.3-44.9) % Plt Count 178 181 (140-400) K/mcL Neutrophils # 12.3 H 9.3 H (1.6-8.9) K/mcL BMP 10/10/16 10/11/16 17:16 03:58 Sodium 137 137 Potassium 3.2 L 3.7 Chloride 101 101 Carbon Dioxide 28 29 BUN 3 L 3 L Creatinine 0.61 0.59 Glucose 87 94 Calcium 7.5 L 7.5 L Liver Function 10/10/16 Range/Units 17:16 Total Bilirubin 0.1 L (0.2-1.2) mg/dL AST 18 (5-34) Units/L ALT 10 (0-55) Units/L Alkaline Phosphatase 78 (38-126) Units/L Albumin 2.6 L (3.5-5.0) g/dL - Impressions Impressions Abdomen/Pelvis CT 10/10/16 15:56 IMPRESSION: 1. Findings compatible with acute descending colitis. No diverticula seen. Trace volume of reactive fluid in the left pericolic gutter. 2. Status post cholecystectomy and hysterectomy. D/ / Nehemiah Ho MD / Nehemiah Ho MD Interpreting Provider: Nehemiah Ho MD - VTE Documentation of Mechanical Device: Intermittent pneumatic compression device Consult Discharge Plan - Plan Referrals: Vibha Miller CNP [Primary Care Provider] - 10/18/16 2:00 pm
--- NOTE | 2016-10-11 15:53 | General Surgery Progress Note ---
<Nayla Jones Jenny - Last Filed: 10/11/16 15:58> Date of Encounter: 10/11/16 Time of Encounter: 15:45 - Assessment and Plan (1) Ischemic colitis Current Visit: Yes Status: Acute Continue clear liquids IV antibiotics- Cipro and Flagyl Conservative management Repeat am CBC Supportive care/pain control Subjective Patient reports: no new complaints, feels better, still having pain, pain is less, tolerating liquids well, flatus, bowel movement, blood in stool (bright red blood), afebrile Objective Vital Signs - Last 8 Hours Temp Pulse Resp BP Pulse Ox 10/11/16 15:22 98.0 F 70 18 110/75 95 10/11/16 11:48 98.1 F 67 18 129/84 95 Intake and Output 10/10/16 10/11/16 10/11/16 23:59 07:59 15:59 Intake Total 1557 / 1557 300 / 300 1020 / 1020 Output Total 500 / 500 1200 / 1200 1000 / 1000 Balance 1057 / 1057 -900 / -900 20 / 20 Intake: IV Fluids 600 / 600 300 / 300 Cipro 400 MG/200 ML 400 400 / 400 200 / 200 mg In 200 ml @ 200 mls/hr IVPB Q12HR [facility] Rx#: [id number] Flagyl 500 MG/100 ML 500 200 / 200 100 / 100 mg In 100 ml @ 100 mls/hr IVPB Q8HR [facility] Rx#: [id number] Oral 957 / 957 1020 / 1020 Output: Urine 600 / 600 1000 / 1000 Catheter 500 / 500 600 / 600 Other: Meal Lunch Percent of Meal Consumed 100% Stool Size Large Stool Consistency liquid Stool Color Brown # Bowel Movements 1 Weight 101.945 kg Patient Weight 10/11/16 23:59 Weight 101.945 kg - General physical appearance well developed, well nourished, no distress, moderate pain - Eyes normal ocular movement - ENT normal mucosa, atraumatic, normocephalic - Neck Neck exam: trachea midline - Respiratory normal respiratory effort, clear to auscultation - Cardiovascular Cardiovascular exam: Present: RRR - Abdomen Abdomen: Present: bowel sounds present, soft, tender Abdominal Tenderness: RLQ, LLQ - Genitourinary other (cantu catheter to SD with clear, yellow urine) - Integumentary no rash, no growths, no abnormal pigmentation - Neurologic CN 2-12 grossly intact - Psychiatric oriented to time, oriented to person, oriented to place, speech is normal, memory intact - Labs 10/11/16 03:58 10/11/16 03:58 Diabetes panel 10/10/16 10/11/16 Range/Units 17:16 03:58 Sodium 137 137 (136-145) mEq/L Potassium 3.2 L 3.7 (3.5-4.5) mEq/L Chloride 101 101 (98-109) mEq/L Carbon Dioxide 28 29 (19-29) mEq/L BUN 3 L 3 L (7-20) mg/dL Creatinine 0.61 0.59 (0.57-1.11) mg/dL Glucose 87 94 (70-99) mg/dL Calcium 7.5 L 7.5 L (8.6-10.8) mg/dL AST 18 (5-34) Units/L ALT 10 (0-55) Units/L Alkaline Phosphatase 78 (38-126) Units/L Albumin 2.6 L (3.5-5.0) g/dL Calcium panel 10/10/16 10/11/16 Range/Units 17:16 03:58 Calcium 7.5 L 7.5 L (8.6-10.8) mg/dL Albumin 2.6 L (3.5-5.0) g/dL Pituitary panel 10/10/16 10/11/16 Range/Units 17:16 03:58 Sodium 137 137 (136-145) mEq/L Potassium 3.2 L 3.7 (3.5-4.5) mEq/L Chloride 101 101 (98-109) mEq/L Carbon Dioxide 28 29 (19-29) mEq/L BUN 3 L 3 L (7-20) mg/dL Creatinine 0.61 0.59 (0.57-1.11) mg/dL Glucose 87 94 (70-99) mg/dL Calcium 7.5 L 7.5 L (8.6-10.8) mg/dL Adrenal panel 10/10/16 10/11/16 Range/Units 17:16 03:58 Sodium 137 137 (136-145) mEq/L Potassium 3.2 L 3.7 (3.5-4.5) mEq/L Chloride 101 101 (98-109) mEq/L Carbon Dioxide 28 29 (19-29) mEq/L BUN 3 L 3 L (7-20) mg/dL Creatinine 0.61 0.59 (0.57-1.11) mg/dL Glucose 87 94 (70-99) mg/dL Calcium 7.5 L 7.5 L (8.6-10.8) mg/dL Total Bilirubin 0.1 L (0.2-1.2) mg/dL AST 18 (5-34) Units/L ALT 10 (0-55) Units/L Alkaline Phosphatase 78 (38-126) Units/L Albumin 2.6 L (3.5-5.0) g/dL - VTE Documentation of Mechanical Device: Intermittent pneumatic compression device Consult Discharge Plan - Plan Referrals: Vibha Miller CNP [Primary Care Provider] - 10/18/16 2:00 pm - Attending Attestation I examined this patient and my medical decision-making was reviewed with the PRINTER [employer]TER [employer]EDER/PA/Advanced Practice Nurse/Resident Physician. I agree with the documented findings, disposition and treatment plan as described except to the extent set forth below. <Frank Pryor - Last Filed: 10/11/16 17:51> Objective Vital Signs - Last 8 Hours Temp Pulse Resp BP Pulse Ox 10/11/16 15:22 98.0 F 70 18 110/75 95 10/11/16 11:48 98.1 F 67 18 129/84 95 Intake and Output 10/11/16 10/11/16 10/11/16 07:59 15:59 23:59 Intake Total 300 / 300 1120 / 1120 Output Total 1200 / 1200 1000 / 1000 600 / 600 Balance -900 / -900 120 / 120 -600 / -600 Intake: IV Fluids 300 / 300 100 / 100 Cipro 400 MG/200 ML 400 200 / 200 mg In 200 ml @ 200 mls/hr IVPB Q12HR [facility] Rx#: [id number] Flagyl 500 MG/100 ML 500 100 / 100 100 / 100 mg In 100 ml @ 100 mls/hr IVPB Q8HR [facility] Rx#: [id number] Oral 1020 / 1020 Output: Urine 600 / 600 1000 / 1000 Catheter 600 / 600 600 / 600 Other: Meal Lunch Percent of Meal Consumed 100% Stool Size Large Stool Consistency liquid Stool Color Brown # Bowel Movements 1 Weight 101.945 kg Patient Weight 10/11/16 23:59 Weight 101.945 kg - Labs 10/11/16 03:58 10/11/16 03:58 Diabetes panel 10/11/16 Range/Units 03:58 Sodium 137 (136-145) mEq/L Potassium 3.7 (3.5-4.5) mEq/L Chloride 101 (98-109) mEq/L Carbon Dioxide 29 (19-29) mEq/L BUN 3 L (7-20) mg/dL Creatinine 0.59 (0.57-1.11) mg/dL Glucose 94 (70-99) mg/dL Calcium 7.5 L (8.6-10.8) mg/dL Calcium panel 10/11/16 Range/Units 03:58 Calcium 7.5 L (8.6-10.8) mg/dL Pituitary panel 10/11/16 Range/Units 03:58 Sodium 137 (136-145) mEq/L Potassium 3.7 (3.5-4.5) mEq/L Chloride 101 (98-109) mEq/L Carbon Dioxide 29 (19-29) mEq/L BUN 3 L (7-20) mg/dL Creatinine 0.59 (0.57-1.11) mg/dL Glucose 94 (70-99) mg/dL Calcium 7.5 L (8.6-10.8) mg/dL Adrenal panel 10/11/16 Range/Units 03:58 Sodium 137 (136-145) mEq/L Potassium 3.7 (3.5-4.5) mEq/L Chloride 101 (98-109) mEq/L Carbon Dioxide 29 (19-29) mEq/L BUN 3 L (7-20) mg/dL Creatinine 0.59 (0.57-1.11) mg/dL Glucose 94 (70-99) mg/dL Calcium 7.5 L (8.6-10.8) mg/dL - Attending Attestation I reviewed the above assessment and examination and agree with the above plan.
[2016-10-12 04:37] LABS: Basophils % 0.4 %; Eosinophils # 0.2 K/mcL (0.0-0.6); Eosinophils % 1.7 %; Hematocrit 34.7 % (35.3-44.9); Hemoglobin 11.3 g/dL (11.5-15.4); Immature Granulocytes % 0.5 % (0-4); Lymphocytes # 1.5 K/mcL (0.6-4.6); Mean Corpuscular HGB Conc 32.6 g/dL (31.6-35.5); Mean Corpuscular Hemoglobin 28.2 pg (28.0-33.3); Mean Corpuscular Volume 86.5 fL (83.0-100.0); Mean Platelet Volume 11.2 fL (9.4-12.4); Monocytes # 0.9 K/mcL (0.0-1.3); Monocytes % 9.4 %; Neutrophils # 6.7 K/mcL (1.6-8.9); Platelet Count 197 K/mcL (140-400); Red Blood Count 4.01 M/mcL (3.82-4.97); Red Cell Distribution Width 14.6 % (11.5-14.5)
[2016-10-12 04:54] LABS: BUN/Creatinine Ratio 3 (6-26); Calcium 7.7 mg/dL (8.6-10.8); Carbon Dioxide 32 mEq/L (19-29); Chloride 99 mEq/L (98-109); Glucose 95 mg/dL (70-99); Osmolality,Calculated 284 (280-300); Potassium 3.2 mEq/L (3.5-4.5); Sodium 139 mEq/L (136-145); eGFR For African Americans > 60 (> 60); eGFR For Non-African Americans > 60 (> 60)
[2016-10-12 04:56] LABS: Blood Urea Nitrogen 2 mg/dL (7-20)
[2016-10-12] MEDS: *HR* OxyCODONE Immed Rel 5 MG TABLET PO PRN (05:09)
[2016-10-12] MEDS ORDERED: Potassium Chloride Elixir 20 MEQ/15 ML UDC PO ONE (07:45)
[2016-10-12] MEDS: MetroNIDAZOLE 500 MG/100 ML 500 MG/100 ML BAG IVPB SCH (09:29)
[2016-10-12] MEDS: Aspirin 81 MG TAB.CHEW PO SCH (09:30)
[2016-10-12] MEDS: Gabapentin 300 MG CAPSULE PO SCH (09:31)
[2016-10-12] MEDS: BuPROPion SR (12 HR) 150 MG TABLET PO SCH (09:31)
--- NOTE | 2016-10-12 15:59 | General Surgery Progress Note ---
<Nayla Jones - Last Filed: 10/12/16 15:54> Date of Encounter: 10/12/16 Time of Encounter: 15:50 - Assessment and Plan (1) Ischemic colitis Current Visit: Yes Status: Acute May advance to full liquids and continue for the next 6-8 weeks Follow-up in [address] Pryor 10/24/16 at 10:30am Transition to PO antibiotics Conservative management Subjective Patient reports: no new complaints, feels better, tolerating liquids well, flatus, bowel movement, blood in stool, afebrile Objective Intake and Output 10/11/16 10/12/16 10/12/16 23:59 07:59 15:59 Intake Total 780 / 780 500 / 500 1120 / 1120 Output Total 1925 / 1925 550 / 550 1925 / 1925 Balance -1145 / -1145 -50 / -50 -805 / -805 Intake: IV Fluids 300 / 300 100 / 100 Cipro 400 MG/200 ML 400 200 / 200 mg In 200 ml @ 200 mls/hr IVPB Q12HR [facility] Rx#: [id number] Flagyl 500 MG/100 ML 500 100 / 100 100 / 100 mg In 100 ml @ 100 mls/hr IVPB Q8HR [facility] Rx#: [id number] Oral 480 / 480 400 / 400 1120 / 1120 Output: Urine 600 / 600 Catheter 1325 / 1325 550 / 550 1925 / 1925 - General physical appearance well developed, well nourished, no distress, no pain - Eyes normal ocular movement - ENT normal mucosa, atraumatic, normocephalic - Neck Neck exam: trachea midline - Respiratory normal respiratory effort, clear to auscultation - Cardiovascular Cardiovascular exam: Present: RRR - Abdomen Abdomen: Present: bowel sounds present, soft, non tender - Integumentary no rash - Neurologic CN 2-12 grossly intact - Musculoskeletal normal posture - Psychiatric oriented to time, oriented to person, oriented to place, speech is normal, memory intact - Labs 10/12/16 04:07 10/12/16 04:07 Diabetes panel 10/12/16 Range/Units 04:07 Sodium 139 (136-145) mEq/L Potassium 3.2 L (3.5-4.5) mEq/L Chloride 99 (98-109) mEq/L Carbon Dioxide 32 H (19-29) mEq/L BUN 2 L (7-20) mg/dL Creatinine 0.62 (0.57-1.11) mg/dL Glucose 95 (70-99) mg/dL Calcium 7.7 L (8.6-10.8) mg/dL Calcium panel 10/12/16 Range/Units 04:07 Calcium 7.7 L (8.6-10.8) mg/dL Pituitary panel 10/12/16 Range/Units 04:07 Sodium 139 (136-145) mEq/L Potassium 3.2 L (3.5-4.5) mEq/L Chloride 99 (98-109) mEq/L Carbon Dioxide 32 H (19-29) mEq/L BUN 2 L (7-20) mg/dL Creatinine 0.62 (0.57-1.11) mg/dL Glucose 95 (70-99) mg/dL Calcium 7.7 L (8.6-10.8) mg/dL Adrenal panel 10/12/16 Range/Units 04:07 Sodium 139 (136-145) mEq/L Potassium 3.2 L (3.5-4.5) mEq/L Chloride 99 (98-109) mEq/L Carbon Dioxide 32 H (19-29) mEq/L BUN 2 L (7-20) mg/dL Creatinine 0.62 (0.57-1.11) mg/dL Glucose 95 (70-99) mg/dL Calcium 7.7 L (8.6-10.8) mg/dL - VTE Documentation of Mechanical Device: Intermittent pneumatic compression device Consult Discharge Plan - Plan Additional Instructions: Full liquid diet with protein supplements (ensure or equivalent) 3 cans per day for the next 6-8 weeks Referrals: Frank Pryor MD [Partnered Physician] - 10/24/16 10:30 am (hospital follow -up) Vibha Miller CNP [Primary Care Provider] - 10/18/16 2:00 pm Lavon Franco MD [Partnered Physician] - 10/26/16 2:30 pm (within 1-2 weeks ) Prescriptions: Ciprofloxacin HCl [Cipro] 500 mg PO BID #14 tablet MetroNIDAZOLE [Flagyl] 500 mg PO TID #21 tablet Nutritional Supplement [Ensure] 113 gm PO TID #90 container - Attending Attestation I examined this patient and my medical decision-making was reviewed with the FOUNDRY MOLDER/PA/Advanced Practice Nurse/Resident Physician. I agree with the documented findings, disposition and treatment plan as described except to the extent set forth below. <KonstantinFrank M - Last Filed: 10/12/16 16:19> Objective Intake and Output 10/12/16 10/12/16 10/12/16 07:59 15:59 23:59 Intake Total 500 / 500 1120 / 1120 Output Total 550 / 550 1924 / 1924 Balance -50 / -50 -805 / -805 Intake: IV Fluids 100 / 100 Flagyl 500 MG/100 ML 500 100 / 100 mg In 100 ml @ 100 mls/hr IVPB Q8HR [facility] Rx#: [id number] Oral 400 / 400 1120 / 1120 Output: Catheter 550 / 550 1924 / 192 - Labs 10/12/16 04:07 10/12/16 04:07 Diabetes panel 10/12/16 Range/Units 04:07 Sodium 139 (136-145) mEq/L Potassium 3.2 L (3.5-4.5) mEq/L Chloride 99 (98-109) mEq/L Carbon Dioxide 32 H (19-29) mEq/L BUN 2 L (7-20) mg/dL Creatinine 0.62 (0.57-1.11) mg/dL Glucose 95 (70-99) mg/dL Calcium 7.7 L (8.6-10.8) mg/dL Calcium panel 10/12/16 Range/Units 04:07 Calcium 7.7 L (8.6-10.8) mg/dL Pituitary panel 10/12/16 Range/Units 04:07 Sodium 139 (136-145) mEq/L Potassium 3.2 L (3.5-4.5) mEq/L Chloride 99 (98-109) mEq/L Carbon Dioxide 32 H (19-29) mEq/L BUN 2 L (7-20) mg/dL Creatinine 0.62 (0.57-1.11) mg/dL Glucose 95 (70-99) mg/dL Calcium 7.7 L (8.6-10.8) mg/dL Adrenal panel 10/12/16 Range/Units 04:07 Sodium 139 (136-145) mEq/L Potassium 3.2 L (3.5-4.5) mEq/L Chloride 99 (98-109) mEq/L Carbon Dioxide 32 H (19-29) mEq/L BUN 2 L (7-20) mg/dL Creatinine 0.62 (0.57-1.11) mg/dL Glucose 95 (70-99) mg/dL Calcium 7.7 L (8.6-10.8) mg/dL - Attending Attestation Noted patient's improvement and no abdominal pain. She still does have some blood in the stool however her hemoglobin level is stable. I think she will continue to improve and I agree with discharge home with full liquids. We will continue antibiotics for about 5 days.
--- NOTE | 2016-10-12 16:31 | Discharge Summary ---
Date of Encounter: 10/12/16 Time of Encounter: 13:00 - Discharge Diagnosis (1) Colitis Priority: Primary Status: Acute (2) Dehydration with hyponatremia Priority: Primary Status: Acute (3) GI bleed Priority: Primary Status: Acute Qualifiers: GI bleed type/associated pathology: anorectal hemorrhage Qualified Code(s) : K62.5 - Hemorrhage of anus and rectum (4) Intractable nausea and vomiting Priority: Primary Status: Acute Qualifiers: Vomiting type: cyclical vomiting Qualified Code(s): G43.A1 - Cyclical vomiting, intractable (5) DVT prophylaxis Priority: Secondary Status: Acute (6) Urinary retention Priority: Primary Status: Acute - Discharge Medications Prescriptions: Ciprofloxacin HCl [Cipro] 500 mg PO BID #14 tablet MetroNIDAZOLE [Flagyl] 500 mg PO TID #21 tablet Nutritional Supplement [Ensure] 113 gm PO TID #90 container Home Medications: Albuterol Sulfate [Albuterol Inhaler] 2 puff IH Q4HR PRN 02/13/16 [History] Atorvastatin [Lipitor] 40 mg PO HS 02/13/16 [History] Cholecalciferol (D-3) [Vitamin D] 1,000 unit PO DAILY 02/13/16 [History] Gabapentin [Neurontin] 300 mg PO BID 02/13/16 [History] HYDROcodone/Acet 5/325 mg [[place] 5-325 mg] 1 tab PO TID PRN 02/13/16 [History] Levothyroxine [Synthroid] 112 mcg PO DAILY 02/13/16 [History] Omeprazole [PriLOSEC] 20 mg PO DAILY 02/13/16 [History] Paroxetine [Paxil] 40 mg PO DAILY 02/13/16 [History] Linaclotide [Linzess] 145 mcg PO DAILY PRN 04/03/16 [History] Promethazine [Phenergan] 25 mg PO Q12H PRN 04/03/16 [History] Amitriptyline HCl [Amitriptyline HCl] 100 mg PO HS 10/08/16 [History] Aspirin 81 mg PO DAILY 10/08/16 [History] BuPROPion SR (12 HR) [Wellbutrin SR] 150 mg PO BID 10/08/16 [History] Dicyclomine [Bentyl] 10 mg PO QID 10/08/16 [History] Docusate [Colace] 100 mg PO BID PRN 10/08/16 [History] Furosemide [Lasix] 40 mg PO DAILY 10/08/16 [History] Lisinopril [Lisinopril] 30 mg PO BID 10/08/16 [History] Metoclopramide HCl 5 mg PO QID 10/08/16 [History] Ciprofloxacin HCl [Cipro] 500 mg PO BID #14 tablet 10/12/16 [Rx] MetroNIDAZOLE [Flagyl] 500 mg PO TID #21 tablet 10/12/16 [Rx] Nutritional Supplement [Ensure] 113 gm PO TID #90 container 10/12/16 [Rx] Allergies/Adverse Reactions: Allergies No Known Allergies Allergy (Unverified 04/05/15 13:52) Procedures/tests Complete & Pending: Procedures Performed prior 72 hours Category Date Time Status CT abd pelvis wo no iv no oral [CT] Stat Cat Scan 10/10/16 15:56 Completed - Notes to Outpatient Provider Patient has a mild hypokalemia with potassium level at 3.2 today. Potassium 40 mEq by mouth has been given, please follow-up potassium level. Date of admission: 10/09/16 15:14 Primary care physician: GIO Molina Consults: 10/09/16 10:41 Consult to Surgery [CONS] Routine Consulting Provider: [facility] Reason for Consult: Abd pain, no BM, rectal bleeding Call Completed: Yes 10/10/16 16:02 Consult to Urology [CONS] Stat Consulting Provider: [facility] Reason for Consult: urinary retention Call Completed: Yes Discharging clinician: Marycarmen Merino Anticipated date of discharge: 10/12/16 - Patient Status Disposition: Home, Self-Care Condition: Good Functional capacity at discharge: independent ambulation Overall status at discharge: patient is progressing back to baseline - Discharge Instructions Follow Up With: Frank Pryor MD [Partnered Physician] - 10/24/16 10:30 am (hospital follow -up) Vibha Miller CNP [Primary Care Provider] - 10/18/16 2:00 pm Lavon Franco MD [Partnered Physician] - 10/26/16 2:30 pm (within 1-2 weeks ) Additional Instructions: Full liquid diet with protein supplements (ensure or equivalent) 3 cans per day for the next 6-8 weeks - Diet and Activity Activity: increase activity as tolerated Diet: other (Full liquid diet with protein supplement as instructed by surgical consult.) Interval History: Patient is a 61-year-old female admitted for rectal bleeding, abdominal pain, nausea and vomiting. Her past medical history is significant for CHF, CAD, hypertension. Past surgical history include cholecystectomy, hysterectomy. Hospital course: Ms. Wilkinson is a 61 year old female admitted as GI bleeding, abdominal pain. Surgical consult was called and colonoscopy has been done. Colonoscopy shows a colitis, most likely ischemic colitis. Patient also developed urinary retention , urology consult was called and recommended keep a Frank catheter and follow up with urology as outpatient. Patient was given nothing by mouth and IV fluid , IV Cipro and Flagyl treatment. After treatment, her condition has improved, she can tolerate clear liquid diet. Discussed with surgical team, will discharge patient home with liquid diet and a follow-up at the surgical office as outpatient. I saw and examined the patient today. She is awake alert, oriented 3. No nausea, no vomiting. Minimal abdominal pain. Vital signs stable. Hemoglobin level stable for 3 days. Wbc is getting down to normal level. Will switch antibiotic to by mouth and discharge patient home. Patient has mild hypokalemia today, by mouth potassium supplement has been given. Patient will follow up at surgical office as outpatient. Patient also will follow with urology in 1-2 weeks. - Time Spent with Patient Total time spent providing and/or coordinating discharge services: 40 minutes Greater than 30 minutes - Constitutional Vitals: Temp Pulse Resp BP Pulse Ox 98.8 F 65 16 123/77 93 L 10/12/16 07:11 10/12/16 07:11 10/12/16 07:11 10/12/16 07:11 10/12/16 07:11 General appearance: Present: A&O X 3, morbidly obese, no acute distress, answers questions appropriately - Head Head exam: Present: atraumatic, normocephalic - Eye Eye exam: Present: PERRL, conjuntiva pink, sclera anicteric Pupils: Present: PERRL - Neck Neck exam general surgery: Present: supple, trachea midline. Absent: lymphadenopathy - Respiratory Respiratory exam: Present: CTAB. Absent: accessory muscle use, rales, rhonchi, wheezes - Cardiovascular Cardiovascular exam: Present: RRR, +S1, +S2. Absent: diastolic murmur, gallop, rubs, systolic murmur - GI/Abdominal GI/Abdominal exam: Present: normal bowel sounds, soft, no peritoneal signs. Absent: distended, tenderness - Extremities Exam Extremities exam: Present: warm, radial pulses palpable and symetrical. Absent : calf tenderness, cyanotic, pedal edema - Neurological Exam Neurological exam: Present: CN II-XII intact, oriented X3, no focal deficits. Absent: pronater drift, facial droop, speech deficit - Skin Skin exam: Present: dry, intact - VTE Documentation of Mechanical Device: Intermittent pneumatic compression device
[2016-10-12 16:56] VITALS: BP 126/74
== END 2016-10-12 17:44 | disposition home or self-care (01) | DRG 393 ==
LOC: 3BNU → SUATTDRO 21:04
PROVIDERS: ADMIT Nurse Practitioner Family; ATTEND Internal Medicine
PROC: ENDOCBX (2016-10-10 12:15)

== ENCOUNTER 2017-01-18 11:23 | Observation (INO) ==
[2017-01-18] MEDS ORDERED: Ondansetron 4 MG/2 ML VIAL IVP PRN (12:16)
[2017-01-18] MEDS ORDERED: *HR* Morphine 2 MG/ML SYRINGE IVP PRN ×2 (12:16→18:16)
[2017-01-18] MEDS ORDERED: ceFAZolin 2,000 MG in D5% in Water (Mini-Bag+) 100 ML IVPB ONE (12:16)
[2017-01-18] MEDS ORDERED: ceFAZolin 2,000 MG in D5% in Water 100 ML IVPB ONE (12:30)
--- NOTE | 2017-01-18 12:31 | Podiatry History & Physical ---
History of Present Illness Chief complaint: Right ankle fracture HPI: Ms. Wilkinson is a 61 year old female who recently fractured her ankle. Patient relates significant pain. Patient relates that it was reduced in the emergency department but she continues to have pain. Patient relates that she usually lives at home and is relatively self-sufficient. Patient relates that usually she walks and is very active. Patient relates a smoking history. Patient also states that she has had multiple UTIs due to urinary retention and her other conditions consist of hypertension, GERD, HLD, biliary dyskinesia. All Systems Reviewed: A 10-system review of systems was performed and is negative for pertinent findings except as documented above in the HPI. Past Med Surg Social Fam HX - Past Medical History Medical history: CHF, coronary artery disease, GERD, hyperlipidemia, hypertension, osteoporosis, RA, thyroid disease, other Psychiatric history: anxiety, depression - Past Surgical History Surgical History: cholecystectomy, hysterectomy, orthopedic, other, sinus surgery, [place]/BSO, thyroidectomy, other - Social History Smoking Status: Current every day smoker Smokeless Tobacco Status: No Alcohol use: none Drug use: none - Family History Mother Adopted: No Family Member Ethnicity: Non- Living Status: Hx Family Cancer: Yes Medications and Allergies Albuterol Sulfate [Albuterol Inhaler] 2 puff IH Q4HR PRN 02/13/16 [History] Atorvastatin [Lipitor] 40 mg PO HS 02/13/16 [History] Cholecalciferol (D-3) [Vitamin D] 1,000 unit PO DAILY 02/13/16 [History] Gabapentin [Neurontin] 300 mg PO BID 02/13/16 [History] HYDROcodone/Acet 5/325 mg [[place] 5-325 mg] 1 tab PO TID PRN 02/13/16 [History] Levothyroxine [Synthroid] 112 mcg PO DAILY 02/13/16 [History] Omeprazole [PriLOSEC] 20 mg PO DAILY 02/13/16 [History] Paroxetine [Paxil] 40 mg PO DAILY 02/13/16 [History] Linaclotide [Linzess] 145 mcg PO DAILY PRN 04/03/16 [History] Promethazine [Phenergan] 25 mg PO Q12H PRN 04/03/16 [History] Amitriptyline HCl [Amitriptyline HCl] 100 mg PO HS 10/08/16 [History] Aspirin 81 mg PO DAILY 10/08/16 [History] BuPROPion SR (12 HR) [Wellbutrin SR] 150 mg PO BID 10/08/16 [History] Dicyclomine [Bentyl] 10 mg PO QID 10/08/16 [History] Docusate [Colace] 100 mg PO BID PRN 10/08/16 [History] Furosemide [Lasix] 40 mg PO DAILY 10/08/16 [History] Lisinopril [Lisinopril] 30 mg PO BID 10/08/16 [History] Metoclopramide HCl 5 mg PO QID 10/08/16 [History] Nutritional Supplement [Ensure] 113 gm PO TID #90 container 10/12/16 [Rx] Nicotine Patch [Nicoderm] 21 mg TD DAILY 12/21/16 [History] hydroCHLOROthiazide [Hydrochlorothiazide] 25 mg PO DAILY 12/21/16 [History] Ondansetron ODT [Zofran ODT] 4 mg SL Q6HR #10 tab.rapdis 01/18/17 [Rx] OxyCODONE/APAP 5/325 [Percocet 5/325 MG] 1 each PO Q4HR PRN #20 tablet 01/18/17 [Rx] Allergies No Known Allergies Allergy (Verified 12/21/16 12:16) Physical Exam - Constitutional General appearance: mild distress - Head Head exam: Present: atraumatic, normal inspection - Eye Eye exam: Present: normal appearance, PERRL, conjuntiva pink Pupils: Present: normal accommodation, PERRL - ENT ENT exam: Present: normal exam - Neck Neck exam: Present: normal inspection - Respiratory Additional comments: Minimal slight wheezes noted - Cardiovascular Cardiovascular exam: Present: RRR - GI/Abdominal Additional comments: No bowel tenderness. - Extremities Exam Extremities exam: Present: joint swelling, tenderness Additional comments: Significant edema noted to the right ankle. Mild tenting of the skin due to the fracture. - Expanded Lower Extremities Exam Ankle exam: Present: dislocation, ecchymosis, swelling, tenderness Neuro vascular tendon exam: Present: no vascular compromise Gait: Present: not tested/not observed - Neurological Exam Neurological exam: Present: oriented X3 Additional comments: Radiographic exam demonstrates an ankle dislocation fracture. - Vascular Lower Extremity Vascular: no vascular compromise Results - Labs Labs: All other labs normal. Assessment and Plan (1) Bimalleolar fracture of right ankle Current visit: No Status: Acute Patient was instructed that she will need open reduction, internal fixation of the ankle fracture. I instructed the patient that sooner than later would be good due to the fact that the tibia is putting pressure on the skin and tenting the skin which would cause possible ischemia over that site and an open fracture. Patient was agreeable and would like to proceed with surgical intervention. The surgical intervention discussed was open reduction, internal fixation of the right ankle fracture.Patient was informed of the risks and complications of surgery. These may include but are not limited to the following ; nerve damage, numbness, tingling, RSD/CRPS, loss of motor function, loss of toe, loss of limb, loss of life, ischemia, wound healing issues, infection, scarring, keloid formation, continued pain, arthritis, non-union, mal-union, prominent hardware, displaced hardware, reaction to hardware, the need to remove hardware, bruising, continued limp, the need for future surgery, over correction, under correction, chronic swelling, the need for physical therapy, stiffness of joints, ulceration, slow healing, wound dehiscence, reaction to implant, reaction to sutures. The patient was informed of the possible conservative treatments available which may include but are not limited to the following: Orthotics, bracing, non -weight bearing, physical therapy, padding, taping, steroid injections, NSAIDS, casting. The patient was given the option to seek a second opinion. It was explained that surgery is an art and not an exact science therefore results cannot be guaranteed. All the patients questions and concerns were addressed. Patient agrees to have the surgery despite the possible risks and complications. Absolutely no guarantees were given or implied. Qualifiers: Encounter type: initial encounter Fracture type: closed Qualified Code(s) : S82.841A - Displaced bimalleolar fracture of right lower leg, initial encounter for closed fracture Code(s): S82.841A - Displaced bimalleolar fracture of right lower leg, initial encounter for closed fracture
[2017-01-18] MEDS ORDERED: *HR* Propofol 200 MG/20 ML VIAL IVP ONE (16:53)
[2017-01-18] MEDS ORDERED: Lidocaine -MPF 2% 2 ML VIAL ONE (16:53)
[2017-01-18] MEDS ORDERED: *HR* Midazolam HCl 2 MG/2 ML VIAL ONE (16:53)
[2017-01-18] MEDS ORDERED: *HR* FentaNYL (PF) 100 MCG/2 ML VIAL ONE (16:53)
[2017-01-18] MEDS ORDERED: Dexamethasone 4 MG/ML VIAL ONE (16:53)
[2017-01-18] MEDS ORDERED: Ondansetron 4 MG/2 ML VIAL ONE (16:53)
[2017-01-18] MEDS ORDERED: Bupivacaine/Clonidine Syringe 1 EACH SYRINGE ONE ×2 (17:14→17:35)
--- NOTE | 2017-01-18 17:14 | Anesthesia Evaluation PreOp ---
Date of Encounter: 01/18/17 Time of Encounter: 17:10 - Past History Planned Operation: Rt Ankle ORIF Cardiac History: HTN, Hyperlipidemia Pulmonary History: Denies Any Significant HX WEEKEND RECEPTIONIST History: Denies Any Significant HX Other Medical History: Thyroid, GERD, Other (Anxiety/Depression, Obese) Anesthesia History: No Prior Anesthetic Complications : No Alcohol Use: none Drug use: none Medications and Allergies Albuterol Sulfate [Albuterol Inhaler] 2 puff IH Q4HR PRN 02/13/16 [History] Atorvastatin [Lipitor] 40 mg PO HS 02/13/16 [History] Cholecalciferol (D-3) [Vitamin D] 1,000 unit PO DAILY 02/13/16 [History] Gabapentin [Neurontin] 300 mg PO BID 02/13/16 [History] HYDROcodone/Acet 5/325 mg [[place] 5-325 mg] 1 tab PO TID PRN 02/13/16 [History] Levothyroxine [Synthroid] 112 mcg PO DAILY 02/13/16 [History] Omeprazole [PriLOSEC] 20 mg PO DAILY 02/13/16 [History] Paroxetine [Paxil] 40 mg PO DAILY 02/13/16 [History] Linaclotide [Linzess] 145 mcg PO DAILY PRN 04/03/16 [History] Promethazine [Phenergan] 25 mg PO Q12H PRN 04/03/16 [History] Amitriptyline HCl [Amitriptyline HCl] 100 mg PO HS 10/08/16 [History] Aspirin 81 mg PO DAILY 10/08/16 [History] BuPROPion SR (12 HR) [Wellbutrin SR] 150 mg PO BID 10/08/16 [History] Dicyclomine [Bentyl] 10 mg PO QID 10/08/16 [History] Docusate [Colace] 100 mg PO BID PRN 10/08/16 [History] Furosemide [Lasix] 40 mg PO DAILY 10/08/16 [History] Lisinopril [Lisinopril] 30 mg PO BID 10/08/16 [History] Metoclopramide HCl 5 mg PO QID 10/08/16 [History] Nutritional Supplement [Ensure] 113 gm PO TID #90 container 10/12/16 [Rx] hydroCHLOROthiazide [Hydrochlorothiazide] 25 mg PO DAILY 12/21/16 [History] Ondansetron ODT [Zofran ODT] 4 mg SL Q6HR #10 tab.rapdis 01/18/17 [Rx] Allergies No Known Allergies Allergy (Verified 12/21/16 12:16) - Meds/Allergy Pre-op Review Medications Reviewed: Yes Allergies Reviewed: Yes Beta Blockers on Current Med List: No Anesthesia Results - Labs Vital Signs/O2 Sat/Glucose, Most Current Temp Pulse Resp BP Pulse Ox 01/18/17 15:49 98.0 F 70 18 106/67 93 01/18/17 15:44 98.0 F 69 18 102/67 89 - Imaging EKG: report reviewed (SR) Additional studies: ECHO EF 60% Anesthesia Exam O2 Sat Height 1.55 m Weight 86.211 kg O2 Sat by Pulse Oximetry 93 O2 Sat by Pulse Oximetry 89 O2 Sat by Pulse Oximetry 94 Vital Signs Temp Pulse Resp BP Pulse Ox 97.9 F 63 18 92/61 94 01/18/17 12:19 01/18/17 12:19 01/18/17 12:19 01/18/17 12:19 01/18/17 12:19 Height: 5'1 Weight: 190 lbs NPO (# of Hours): MN Pain Scale: 0 - HEENT Pupil (Motor): Pupils equal, EOMI Mallampati: III Oral Opening: Less than or equal to 3 - WEEKEND RECEPTIONIST LOC: Oriented WEEKEND RECEPTIONIST Motor: Normal RUE, Normal LUE, Normal RLE, Normal LLE, Normal Face WEEKEND RECEPTIONIST Sensory: Normal: RUE, LUE, RLE, LLE, Face - Cardiac Rhythm: Regular Murmur: None JVD: No Carotid Bruit: No - Pulmonary Breath Sounds: bilateral Clear Respiratory Effort: Symmetrical Anesthesia Assess/Plan ASA Score: 3 (HTN CAD GERD) Modified Lizzy Scale for Level of Consciousness: Cooperative, oriented, and tranquil Anesthetic Plan: General, Regional Monitoring Plan: Standard Monitors Recovery Plan: PACU (DiscussedGA and RA, agrees to proceed)
[2017-01-18] MEDS ORDERED: Tetracaine/PF 20 MG/2 ML AMPUL ONE (17:15)
[2017-01-18] MEDS ORDERED: ROPIVACAINE HCL/PF 0.5% 30 ML VIAL ONE (17:15)
--- NOTE | 2017-01-18 17:45 | Anesthesia Procedures ---
Date of Encounter: 01/18/17 Time of Encounter: 17:11 Procedures: Anesthesia - Nerve Block Procedure Date: 01/18/17 Time: 17:20 Pre-op Diagnosis: Fracture Rt ANKLE Surgical Procedure: ORIF Rt Ankle Checklist: Correct Patient Identifier Correct side: Right Blood Thinner: No Monitor Applied: EKG, BP, Pulse Oximetry Supplemental Oxygen via Nasal Cannula (L/min): 2 Sedation: Versed (mg): 2 Sedation: Fentanyl (mcg): 100 Indication: Post Op Analgesia Pre-op Neuro Deficits: No Block Type: Popliteal, Other (Adductor Canal) Catheter placed: No Depth at skin (cm): 2 Sterile Technique: Yes Ultrasound used: Yes Anatomy identified: Yes Visual spread of Local: Yes Neuro Stimulation: No Blood on Needle Aspiration: No Smooth Injection of Local: Yes Pain with Injection of Local: No Prep: Chlorhexadine Needle: 22 x 50 mm Stimuplex Local: 0.25% Bupivicaine w/Clonidine 20 mcg/cc, Tetracaine, Ropivacaine (0.5%) Volume (cc): 30 Number of Attempts: 1 Complications: None/effective block Vitals: Vital Signs/O2 Sat/Glucose, Most Current Temp Pulse Resp BP Pulse Ox 01/18/17 15:49 98.0 F 70 18 106/67 93 01/18/17 15:44 98.0 F 69 18 102/67 89
[2017-01-18] MEDS ORDERED: Acetaminophen IV 1,000 MG/100 ML INFUS..BTL ONE (17:47)
[2017-01-18] MEDS ORDERED: Famotidine 20 MG/2 ML VIAL ONE (17:48)
[2017-01-18] MEDS ORDERED: Ketorolac 15 MG/ML VIAL IVP ONE (18:16)
[2017-01-18] MEDS ORDERED: *HR* Promethazine 25 MG/ML VIAL IVP PRN (18:16)
--- NOTE | 2017-01-18 19:47 | Discharge Summary ---
Date of Encounter: 01/18/17 Time of Encounter: 19:44 - Discharge Diagnosis (1) Bimalleolar fracture of right ankle Priority: Primary Status: Acute Qualifiers: Encounter type: initial encounter Fracture type: closed Qualified Code(s) : S82.841A - Displaced bimalleolar fracture of right lower leg, initial encounter for closed fracture Code(s): S82.841A - Displaced bimalleolar fracture of right lower leg, initial encounter for closed fracture - Discharge Medications Prescriptions: Oxycodone HCl/Acetaminophen [Percocet 10-325 mg Tablet] 1 each PO Q6HR #28 tablet Rivaroxaban [Xarelto] 10 mg PO DAILY #21 tablet Home Medications: Albuterol Sulfate [Albuterol Inhaler] 2 puff IH Q4HR PRN 02/13/16 [History] Atorvastatin [Lipitor] 40 mg PO HS 02/13/16 [History] Cholecalciferol (D-3) [Vitamin D] 1,000 unit PO DAILY 02/13/16 [History] Gabapentin [Neurontin] 300 mg PO BID 02/13/16 [History] HYDROcodone/Acet 5/325 mg [[place] 5-325 mg] 1 tab PO TID PRN 02/13/16 [History] Levothyroxine [Synthroid] 112 mcg PO DAILY 02/13/16 [History] Omeprazole [PriLOSEC] 20 mg PO DAILY 02/13/16 [History] Paroxetine [Paxil] 40 mg PO DAILY 02/13/16 [History] Linaclotide [Linzess] 145 mcg PO DAILY PRN 04/03/16 [History] Promethazine [Phenergan] 25 mg PO Q12H PRN 04/03/16 [History] Amitriptyline HCl [Amitriptyline HCl] 100 mg PO HS 10/08/16 [History] Aspirin 81 mg PO DAILY 10/08/16 [History] BuPROPion SR (12 HR) [Wellbutrin SR] 150 mg PO BID 10/08/16 [History] Dicyclomine [Bentyl] 10 mg PO QID 10/08/16 [History] Docusate [Colace] 100 mg PO BID PRN 10/08/16 [History] Furosemide [Lasix] 40 mg PO DAILY 10/08/16 [History] Lisinopril [Lisinopril] 30 mg PO BID 10/08/16 [History] Metoclopramide HCl 5 mg PO QID 10/08/16 [History] Nutritional Supplement [Ensure] 113 gm PO TID #90 container 10/12/16 [Rx] hydroCHLOROthiazide [Hydrochlorothiazide] 25 mg PO DAILY 12/21/16 [History] Ondansetron ODT [Zofran ODT] 4 mg SL Q6HR #10 tab.rapdis 01/18/17 [Rx] Oxycodone HCl/Acetaminophen [Percocet 10-325 mg Tablet] 1 each PO Q6HR #28 tablet 01/18/17 [Rx] Rivaroxaban [Xarelto] 10 mg PO DAILY #21 tablet 01/18/17 [Rx] Allergies/Adverse Reactions: Allergies No Known Allergies Allergy (Verified 12/21/16 12:16) Date of admission: 01/18/17 11:53 Primary care physician: GIO Molina Anticipated date of discharge: 01/18/17 - Patient Status Disposition: Home, Self-Care Condition: Good Functional capacity at discharge: uses cane/walker Overall status at discharge: patient is progressing back to baseline - Discharge Instructions Follow Up With: Vibha Miller CNP [Primary Care Provider] - Additional Instructions: Strict nonweightbearing, ice and elevate, keep dressings clean, dry, and intact , follow up in one week. - Diet and Activity Activity: ambulate only with your walker Diet: regular diet - Hospital Course Hospital course: Ms. Wilkinson is a 61 year old female - Time Spent with Patient Total time spent providing and/or coordinating discharge services:
--- NOTE | 2017-01-18 19:49 | Anesthesia Evaluation Post Op ---
Date of Encounter: 01/18/17 Time of Encounter: 19:48 - Vital Signs Vital Signs: Vital Signs/O2 Sat/Glucose, Most Current Temp Pulse Resp BP Pulse Ox 01/18/17 19:45 98.1 F 64 16 93/64 97 01/18/17 19:35 65 16 87/66 97 01/18/17 19:25 68 16 87/65 97 01/18/17 19:15 97.7 F 71 16 115/50 100 01/18/17 18:14 73 10 110/62 96 01/18/17 15:49 98.0 F 70 18 106/67 93 - Lungs Lungs: Clear Ascult./Percussion - Airway Airway: Non-obstructed - Cardiovascular Regular Rate - Mental Status Mental Status: Alert & Oriented, Answers Appropriately - Pain Pain Scale: 0 - Nausea Vomiting Nausea Vomiting: Not Present - Hydration Hydration: Ice chips - Discharge PostOp Status: Transfer Patient to floor
--- NOTE | 2017-01-18 19:51 | Operative Note ---
Date of procedure: 01/18/17 Pre-op diagnosis: Bimalleolar ankle fracture with subluxation of ankle, right Post-op diagnosis: same Procedure: Open reduction, internal fixation of bimalleolar ankle fracture, right. Syndesmotic repair, right Implants: [place] plate with associated screws Complications: None Anesthesia: ABI Surgeon: Chu Gonsalves Estimated blood loss (cc): 5 Tourniquet Time (Minutes): 50 Condition: stable Disposition: PACU Procedure in Detail: The patient was administered IV antibiotics. The patient was transported to the operative room and placed on operating table in the supine position. Following anesthesia the extremity was scrubbed prepped and draped in the usual aseptic fashion. A timeout was performed. The lower extremity was raised to 60 degrees for hemostasis and exsanguinated utilizing an Esmarch bandage. The pneumatic tourniquet was inflated. The leg was lowered to the table. An incision was made and deepened through subcutaneous tissue with care taken to identify and retract all vital neurovascular structures. The fracture of the distal fibula was identified and noted to be oblique in nature. The site was reduced utilizing lobster claw, due to poor bone quality a lag screw was not used. The site was stabilized temporarily utilizing 2 K wire fixation instead. A neutralization plate was applied. The fracture site was noted to have stable fixation at which point the temporary K wire fixation was removed. After the neutralization plate was applied the syndesmosis was then tested and noted to be insufficient. A syndesmotic screw was then placed to repair the subluxation/syndesmosis. Attention was then directed to the medial malleolus fracture. Due to the skin atrophy secondary to the displacement of the ankle a smaller distal incision was made. The fracture site was reduced and stabilized utilizing K wire fixation initially after which cannulated screws were then inserted. After confirmation of adequate excision on fluoroscopy the sites were all irrigated with copious amounts of normal saline and closed in a layered fashion. A dry sterile dressing was applied. The pneumatic tourniquet was deflated and a hyperemic response was noted to all digits. The patient was placed in a posterior splint. The patient tolerated the procedure and anesthesia well and was transported to the recovery room with vital signs stable and vascular status intact to both feet. The patient will be readmitted to the floor per anesthesia. The patient will keep the dressings clean, dry, intact until the follow-up appointment in 1-2 weeks. The patient's weightbearing status will be strict nonweightbearing.
[2017-01-18 21:14] VITALS: BP 94/61
== END 2017-01-18 22:10 | disposition home or self-care (01) ==
LOC: 3NENU
PROVIDERS: ADMIT Podiatrist Foot & Ankle Surgery; ATTEND Podiatrist Foot & Ankle Surgery